=== PATIENT | male | born 1990 | race Caucasian/White ===

== ENCOUNTER 2017-01-19 15:01 | Emergency (ER) | payer MEDICARE ==
[~2017-01-19] VITALS: Ht 165.1 cm; Wt 52.2 kg
[~2017-01-19 15:01] MED LIST: AMBIEN 10MG TAB10 MG PO; AMOXICOT500 M1 PO; BUSPIRONE 5MG TA5 MG PO; KEFLEX 500MG.500 MG PO; KLONOPIN1 MG PO; NORCO 325 MG-51 TAB PO; SEPTRA DS 800 M1 TAB PO; SUBOXONE 8 MG-21 TAB SL; ULTRAM50 MG PO
[2017-01-19] MEDS ORDERED: ESTAZOLAM1 MG PO (15:17)
--- OUTSIDE RECORDS SUMMARY | 2017-01-19 15:28 | External Medical Summary Rpt | CCD ---
Author Author , ASHUTOSH Organization ASHUTOSH Address Unknown Phone [email or web address] Care [email or web address] Providers Care Pack Room Operator Name Role Phone Isabel Lamas MD, Unavailable Unavailable Isabel Lamas MD M S CAIT M S Unavailable Unavailable CAIT Purpose Continuity of Care Document - 04-16-2012 through 2016 Problems Code Diagnosis DOS Provider Status 034.0 034.0 STREP 03-01-2013 [place] SORE [facility] THROAT [facility] 079.99 079.99 03-01-2013 [facility] INFECTION [facility] NOS 681.02 681.02 04-17-2012 [place] ONYCHIA [facility] G47.00 Insomnia, unspecified 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 M54.6 Pain in thoracic spine R00.2 Palpitation s R07.81 Pleurodynia R07.9 Chest pain, unspecified R10.13 Epigastric pain R10.84 Generalized abdominal pain R91.1 Solitary pulmonary nodule Allergies, Adverse Reactions, Alerts Type Allergy to substance Adverse Reaction to Substance Substance Reaction Severity INGREDIENT: NO KNOWN Unknown Unknown - NO KNOWN DRUG ALLERGY Medications Na ND Rx Da Fi Fi Am Da Di Ph RX Ph St me C No te ll ll ou ys ag ar # ys at rm s nt no ma ic us Or Da si cy ia de te s n re d Ib 62 01 0 No up 58 -0 ro 40 4- Lo fe 74 20 ng n 60 14 er 40 1 0M Ac G ti Ta ve bl et BI 60 01 0 No CI 79 -0 LL 30 4- Lo IN 70 20 ng 11 14 er L- 0 A Ac 1, ti 20 ve 0, 00 0 UN IT S RIVAS 51 02 0 No LF 07 -2 AM 90 0- Lo ET 12 20 ng HO 82 13 er XA 0 ZO Ac LE ti -T ve MP DS TA BL ET Ce 55 02 0 No ph 95 -2 al 30 0- Lo ex 11 20 ng in 40 13 er 1 50 Ac 0M ti G ve Ca ps ul e Vital Signs 03-01-2013 13:04 Name Value Interpretat Reference Comment ion Range Body 100.1 Temperature [degF] BP 62 mm[Hg] Diastolic BP Systolic 103 mm[Hg] Heart 117 /min Rate/Pulse O2% 100 % Respiratory 18 /min Rate 03-01-2013 12:18 Name Value Interpretat Reference Comment ion Range BP 77 mm[Hg] Diastolic BP Systolic 119 mm[Hg] Heart 121 /min Rate/Pulse O2% 97 % Respiratory 20 /min Rate Results Labs Lab Lab Date Result Refere Interp Status Commen Order Detail nces retati t Range on STREP SCREEN (RAPID) (03-01-2013 11:39) STREP POSITIV complet SCREEN 014 E ed (RAPID) 11:39 Encounters Encounter Start End Date Code Location Performer Type Date Emergency JOCELYNE Lamas MD (ER) 4 11:35 4 13:06 [facility] Emergency JOCELYNE Rizvi (ER) 3 23:43 3 00:31 [facility]
--- OUTSIDE RECORDS SUMMARY | 2017-01-19 15:28 | External Medical Summary Rpt | CCD ---
Author Author , ASHUTOSH Organization ASHUTOSH Address Unknown Phone [email or web address] [email or web address] Care Facility Sales And Admin Name Role Phone Isabel Lamas MD, Unavailable Unavailable Isabel Lamas MD M S CAIT M S Unavailable Unavailable CAIT Purpose Continuity of Care Document - 04-16-2012 through 2016 Problems Code Diagnosis DOS Provider Status 034.0 034.0 STREP 03-01-2013 [place] [facility] 079.99 079.99 03-01-2013 [facility] INFECTION [facility] NOS 681.02 681.02 04-17-2012 [place] ONYCHIA [facility] G47.00 Insomnia, unspecified I77.4 Celiac artery [...] Lamas MD (ER) 4 11:35 4 13:06 [facility] Emergency JOCELYNE Rizvi (ER) 3 23:43 3 00:31 [facility]
--- OUTSIDE RECORDS SUMMARY | 2017-01-19 15:29 | External Medical Summary Rpt | CCD ---
Author Author , ASHUTOSH Organization ASHUTOSH Address Unknown Phone [email or web address] Immunization Name Date Rout CVX Reac Dose Comm Prov Is Faci e tion ent ider Refu lity Give sed n Hep 08-0 8 999 Hist H149 No H149 B, 2-20 oric ped/ 05 al adol Info rmat ion - Sour ce Unsp ecif ied Hep 07-2 8 999 Hist H149 No H149 B, 3-20 oric ped/ 04 al adol Info rmat ion - Sour ce Unsp ecif ied Td 07-2 9 999 Hist H149 No H149 (rafi 3-20 oric lt), 04 al Info adso rmat rbed ion - Sour ce Unsp ecif ied DTP 04-1 1 999 Hist H180 No H180 5-19 oric 96 al Info rmat ion - Sour ce Unsp ecif ied MMR 04-1 3 999 Hist H180 No H180 5-19 oric 96 al Info rmat ion - Sour ce Unsp ecif ied Robert 04-1 2 999 Hist H180 No H180 o-OP 5-19 oric V 96 al Info rmat ion - Sour ce Unsp ecif ied
--- OUTSIDE RECORDS SUMMARY | 2017-01-19 15:29 | External Medical Summary Rpt | CCD ---
Author Author [employer] Organization [employer] Address Unknown Phone Unavailable Purpose Continuity of Care Document - through 2016
--- OUTSIDE RECORDS SUMMARY | 2017-01-19 15:29 | External Medical Summary Rpt | CCD ---
Author Author , ASHUTOSH Organization ASHUTOSH Address Unknown Phone [email or web address] Immunization Name Date Rout CVX Reac Dose [...]
--- NOTE | 2017-01-19 15:55 | Emergency Room Report ---
History of Present Illness Time Seen by MD [place] Presenting Problem in Triage Pt arrived:Walked Presenting Problem:WEAK AND SHAKY Onset of symptoms date/time:01/19/17 or onset unknown for: Treatment Prior to Arrival: ESTISOLAM [facility] Provided by:SELF Sepsis Risk Assessment: Temp: 98.9 B/P: 145/82 MAP: 103 Pulse: 96 Resp: 20 Recent fever? N Clinical Suspician of Infection? N Mental Status: 1 - Regular (Normal Baseline) Sepsis Risk:Possible Sepsis Risk Have you (or family members/close friends) recently traveled outside the [place]? N If Yes, where/when: Have you had exposure to infectious disease within the past month? N TB? Other? Specify: Patient states he feels lightheaded and weak today and was driving he denies any shortness of breath he denies any loss of consciousness denies any palpitations or racing heart he denies any pain no complaint of headache chest pain or abdominal pain he denies any myalgias he denies any fevers or chills and denies nausea vomiting diarrhea he states he drinks alcohol 3 beers a night he denies any drug use. ALLERGIES Coded Allergies: No Known Allergies (01/19/17) Home Medications Reported Medications Estazolam 1 MG PO QHS History Medical History General CAD? No Angina: No ID: No Hypertension? No Hyperlipidemia? No CHF? No DVT? No PE? No COPD? No Asthma? No Anemia? No GERD? No Gastric ulcers? No GI Bleed? No Hernia? No Thyroid Problems? No Hypothyroidism? No CVA? Yes Seizures? No Diabetes? No Renal Insuffiency? No End Stage Renal Disease? No UTI? No Stones? No BPH? No GB Disease: No Nephritic Syndrome? No Asplenia? No Hepatitis? No Sickle Cell Disease? No Arthritis? No Migraines? No Cataracts? No Glaucoma? No MRSA? No HIV? No TB? No Anxiety? Yes Depression? No Cancer? No More? Yes Additional hx: SCOLIOSIS Immunization Hx DT/Tetanus 5-10 YRS Surgical Hx Previous Surgery?Y ORAL SURGERY Social History Smoking Hx Smoker: Never Smoker Tobacco: Yes Type Chew Packs/day N/A Are you/the child exposed to second-hand smoke: No Alcohol Alcohol: No Review of Systems All Other Systems Reviewed and Negative Physical Exam Vital Signs Vital Signs Date Time Temp Pulse Resp B/P Pulse O2 O2 Flow FiO2 Ox Delivery Rate 01/19 1648 74 20 118/82 96 01/19 1627 78 115/80 01/19 1627 91 132/43 01/19 162 97 123/77 01/19 1507 98.9 96 20 145/82 96 General Appearance: Nontoxic fatigued and dehydrated Head: Normocephalic, without obvious abnormality, atraumatic. Eyes: conjunctiva/corneas clear ENT: Mucous membranes dry Neck: No jugular venous distention. Cardiac: regular rate and rhythm Lungs: Clear to auscultation bilaterally Abdomen: Nontender, Nondistended, positive bowel sounds, no rebound : No CVA tenderness Extremities: no edema Musculoskeletal: No chest wall tenderness Skin: No rashes or lesions to exposed skin. Neurologic: Alert. Alert and oriented x3 Cranial nerves intact Strength 5 out of 5 Sensation intact to light touch Psychiatric: Normal affect (Lissette PEREZ, Rafael) General Appearance normal appearance Respiratory Status No: respiratory distress. Cardiovascular normal exam Neurologic alert Medical Decision Making LABS/Meds/Orders Pt receiving controlled substance in ED? No Results/Orders Laboratory Tests 01/19/17 1625: Sodium 146 H, Potassium 3.9, Chloride 107, Carbon Dioxide 31, BUN 13, Creatinine 0.9, Estimated Creat Clear 93, Estimated GFR (MDRD) 103, Glucose 94, Calcium 9.2, Total Bilirubin 0.5, AST 19, ALT 32, Alkaline Phosphatase 81, Troponin I < 0.02, Total Protein 7.8, Albumin 4.4, Globulin 3.4 H, Albumin/ Globulin Ratio 1.3, WBC 8.0, RBC 5.47, Hgb 16.2, Hct 48.7, MCV 89.0, RDW 12.8, Plt Count 272, MPV 7.1 L, Gran % 76.2, Gran # 6.1, Lymphocytes % 15.4, Monocytes % 7.1, Eosinophils % 0.9, Basophils % 0.5, Lymphocytes # 1.2, Monocytes # 0.6, Eosinophils # 0.1, Basophils # 0.0, PUBS MCHC 33.3, MCH 29.6 01/19/17 1620: Opiates Screen NEGATIVE, Urine Methadone Screen NEGATIVE, Barbiturates NEGATIVE, Phencyclidine Screen NEGATIVE, Amphetamines Screen NEGATIVE, Benzodiazepines Screen NEGATIVE, Cocaine Screen NEGATIVE, Marijuana (THC) Screen NEGATIVE, Urine Color YELLOW, Urine Appearance CLEAR, Urine pH 6.0, Ur Specific Brumley <= 1.005 , Urine Protein NEGATIVE, Urine Ketones NEGATIVE, Urine Blood NEGATIVE, Urine Nitrate NEGATIVE, Urine Bilirubin NEGATIVE, Urine Urobilinogen 0.2, Ur Leukocyte Esterase NEGATIVE, Urine RBC NONE, Urine WBC NONE, Ur Squamous Epith Cells OCC, Urine Bacteria TRACE, Urine Glucose NEGATIVE Current Medication Orders Sig/Juan Start time Last Medication Dose Route Stop Time Status Admin Sodium Chloride 1,000 ML .STK-MED ONE 01/19 1637 DC IV Sodium Chloride 10 ML PRN PRN 01/19 1615 AC IV 01/20 1602 Sodium Chloride 1,000 ML .Q1H1M 01/19 1600 DC 01/19 IV 01/19 1700 1637 Sodium Chloride 10 ML PRN PRN 01/19 1600 AC IV 01/20 1552 Orders Procedure Date/time Status IV SALINE LOCK 01/19 1602 Active ELECTROCARDIOGRAM REQUEST 01/19 1553 Active CHEST(2 VIEWS-NOT PORTABLE) 01/19 1553 Active ORTHOSTATIC B/P 01/19 1553 Active URINALYSIS/COMPLETE 01/19 1553 Complete TROPONIN I 01/19 1553 Complete DRUG ABUSE SCREEN (10) 01/19 1553 Complete CBC WITH AUTO DIFF 01/19 1553 Complete CHEM 12 PROFILE 01/19 1553 Complete 12 LEAD EKG-[facility] (INITIAL) 01/19 1550 Active 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 Rhythm Normal Sinus Rhythm Rate 80 Ectopy No Comments Electrocardiogram read by myself some RIGHT axis and RIGHT ventricular hypertrophy early RIGHT bundle branch block EKG NSR Departure Departure Disposition DC Home or Self Care(routine) Clinical Impression Primary Impression: Light headedness Condition STABLE Referrals CHARLES SILVEIRA (Family) Patient Instructions Dizziness, Nonvertigo Additional Instructions follow up with your family doctor for recheck return if worse to ER drink plenty of fluids Prescriptions Current Visit Scripts ONDANSETRON HCL (Zofran 4MG Tab) 4 MG PO Q6HP PRN NAUSEA AND VOMITING #10 TAB ED Critical Care Critical Care No at 1725
[2017-01-19 16:34] LABS: URINE BILIRUBIN - DIPSTICK NEGATIVE (NEG); URINE BLOOD NEGATIVE (NEG)
[2017-01-19 16:35] LABS: HEMOGLOBIN 16.2 g/dL (14.1-18.0); LYMPH # 1.2 K/mm3 (0.7-4.5); LYMPH % 15.4 % (10-50)
[2017-01-19 16:46] LABS: URINE SQUAMOUS CELLS OCC #/hpf (OCC)
[2017-01-19 16:47] LABS: BUN 13 mg/dL (7-18); GFR (ESTIMATED) 103 ML/MIN (>60)
[2017-01-19 16:50] LABS: AMPHETAMINES/METAMPHETAMINES NEGATIVE ng/mL (<1000)
[2017-01-19] MEDS ORDERED: ZOFRAN4 MG PO (17:23)
[2017-01-19 17:25] VITALS: BP 118/82
--- NOTE | 2017-01-19 18:08 | RADIOLOGY REPORT PS360 ---
CHEST(2 VIEWS-NOT PORTABLE) COMPARISON: PA and lateral chest 10/13/2015 HISTORY: Dizziness TECHNIQUE: PA and lateral chest FINDINGS: The lung [place] are well expanded. There are slightly prominent bronchovascular markings in the right suprahilar region extending to the right upper lobe otherwise lung w[place] are clear of infiltrate. Cardiac size is normal. There is mild pectus excavatum of the lower sternum. IMPRESSION: Questionable right upper lobe bronchopneumonia versus confluence of vascular shadows, stable mild pectus excavatum
== END 2017-01-19 17:27 | disposition home or self-care (01) ==
LOC: ER 15:01
PROVIDERS: Emergency Medicine
DX: R42 Dizziness and giddiness (principal); F41.9 Anxiety disorder, unspecified; Z79.899 Other long term (current) drug therapy

== ENCOUNTER 2017-02-02 13:05 | Emergency (ER) | payer MEDICARE ==
[~2017-02-02] VITALS: Ht 165.1 cm; Wt 54.4 kg
[~2017-02-02 13:05] MED LIST changes: +ESTAZOLAM1 MG PO; +ZOFRAN4 MG PO
[2017-02-02 13:29] LABS: URINE BILIRUBIN - DIPSTICK NEGATIVE (NEG); URINE BLOOD NEGATIVE (NEG)
--- OUTSIDE RECORDS SUMMARY | 2017-02-02 13:46 | External Medical Summary Rpt | CCD ---
Author Author , [facility] Organization [facility] Address Unknown Phone Care Team Providers Care Hotel Staff Member Name Role Phone A Kyree ALEXIS MD PSC, A Unavailable Unavailable Kyree ALEXIS MD PSC PALLAVI ESCOBAR, Unavailable Unavailable PALLAVI ESCOBAR DOUGLAS, Unavailable Unavailable MEKA WHITTINGTON [facility] # [id number], Unavailable Unavailable [facility] # [id number] [facility][id number], Unavailable Unavailable [facility][id number] [place] [facility], Unavailable [facility]available [facility] [facility] Un[facility] Un[facility], [facility] Unavailable Unavailable HOSPITA, [facility] Unavailable Unavailable INC, [facility] Unavailable Unavailable [facility]PITAL P, [facility], Unavailable Unavailable [facility], Unavailable Unavailable [facility] PL[facility], Unavailable Unavailable [facility], [facility] Isabel Lamas MD, Unavailable Unavailable Isabel Lamas MD [facility] CRI, AR[facility]IS CRI Unavailable Unavailable [facility] Unavailable Unavailable [facility] Unavailable Unavailable [facility] Unavailable Unavailable SERVICES, [facility] CHENCHO JOSEPH, Unavailable Unavailable [facility] JO[facility] Unavailable Unavailable CARE, [facility] Unavailable Unavailable INC, [facility] MALLORY SMILEY MD Unavailable Unavailable CONSULTING SRVMALLORY MD CONSULTING SRV [facility], Unavailable [facility], Unavailable Unavailable [facility] Unavailable Unavailable [id number] # [id number], [facility] [address] # 0098 [facility] Unavailable Unavailable [id number] # [id number], [facility] [address] # 0393 PALLAVI ROCHA MD Unavailable Unavailable PSC, PALLAVI ROCHA MD PSC ROSS GABBY, ROSS GABBY Unavailable Unavailable SCIFRES ANG, SCIFRES Unavailable Unavailable [facility] Un[facility] Unavailable [facility]ICIANS, [facility], Unavailable [facility]available [facility], Unavailable Unavailable [facility] Unavailable Unavailable #591, [facility]591 [facility] # Unavailable Unavailable [id number], [facility] # [id number] [facility] Unavailable Unavailable [facility], [facility] SHERIF STILES Unavailable Unavailable GO Jenkins DEBORAH J WRIGHT, A C, VANESA, Unavailable Unavailable A C Purpose Continuity of Care Document - 06-11-2007 through 2016 Problems Code Diagnosis DOS Provider Status J040 ACUTE 10-13-2015 [facility], [facility] R0789 OTHER CHEST 10-13-2015 [facility] R079 CHEST PAIN 10-13-2015 [facility] R091 PLEURISY 10-13-2015 [facility], [facility] G4700 INSOMNIA 09-13-2015 [facility]PECIFIED [facility] Z681 BODY MASS 09-13-2015 INDEX 19.9 [facility] OR LESS PHYSICIANS ADULT [id number] OTHER LONG 09-13-2015 TERM [facility] CURRENT PHYSICIANS DRUG THERAPY [id number] PAIN IN 08-19-2015 [place] [facility] M419 SCOLIOSIS 08-19-2015 [place] [facility] M461 SACROILIITI 08-19-2015 [place] S NOT [facility] ELSEWHERE C CENTER CLASSIFIED M5416 RADICULOPAT 08-19-2015 [place] HY LUMBAR [facility] M546 PAIN IN 08-19-2015 [place] [facility]ACIC [facility] SPINE [facility] J40 BRONCHITIS 01-13-2015 [facility] NOT PHYSICIANS SPECIFIED GROUP ACUTE OR CHRONIC R05 COUGH 01-02-2015 [facility] R0989 OTH SPEC SX 01-02-2015 [facility] & SIGNS [facility] IN[facility]LV THE IMAGING ASS CIRC & RESP SYS 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 6820 CELLULITIS 09-29-2014 [facility] AND ABSCESS PHYSICIANS OF FACE GROUP 7245 UNSPECIFIED 09-29-2014 [facility] BACKACHE PHYSICIANS GROUP 15851 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 [facility] 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 7242 LUMBAGO 09-15-2014 [facility] 04328 SCOLIOSIS , 09-15-2014 [facility] 03524 NAUSEA WITH 06-17-2014 [facility] 91689 ABDOMINAL 06-17-2014 [place] [facility], MEDICAL UNSPECIFIED IMAGING ASS SITE 25615 ABDOMINAL 06-17-2014 [place] [facility] UPPER INC QUADRANT 5589 OTH&UNSPEC 06-16-2014 [facility] GASTROENTER ITIS&COLITI S 95804 ABDOMINAL 06-16-2014 [place] [facility] OTHER MEDICAL SPECIFIED IMAGING ASS SITE 034.0 034.0 STREP 03-01-2013 [place] SORE [facility] THROAT [facility] 079.99 079.99 03-01-2013 [place] VIRAL [facility] INFECTION Hospital NOS 59737 UNSPECIFIED 03-01-2013 [facility] VIRAL [facility] INFECTION SERVICES IN CCE & UNS SITE 55775 FEVER 03-01-2013 [facility] UNSPECIFIED [facility]ERGENCY SERVICES 3671 MYOPIA 02-08-2013 [facility] ANG 7291 UNSPECIFIED 09-06-2012 [facility] MYALGIA [facility] AND SERVICES MYOSITIS 8472 LUMBAR 09-06-2012 [place] SPRAIN AND EMERGENCY STRAIN SERVICES 681.02 681.02 04-17-2012 [place] ONYCHIA [facility] 36649 ONYCHIA AND 04-16-2012 [place] PARONYCHIA EMERGENCY OF RACINE SERVICES 7282 MUSCULAR 04-12-2012 [place] WASTING AND [facility]OP[facility]I DISUSE C CENTE ATROPHY NEC 8460 SPRAIN AND 04-12-2012 [place] STRAIN OF CHIROPRACTI LUMBOSACRAL C CENTE 41798 OTHER ACUTE 12-14-2011 [facility] PA[facility] 48106 OTHER 12-14-2011 [facility] CHRONIC [facility] 7234 BRACHIAL 08-18-2011 [place] [facility] RADICULITIS NOS 18730 SPASM OF 08-18-2011 [place] MUSCLE [facility] 8471 THORACIC 08-18-2011 [place] SPRAIN AND CHIROPRACTI STRAIN [facility] 82962 ESOPHAGEAL 07-06-2011 HEALTH REFLUX PSC 7061 OTHER ACNE 07-06-2011 HEALTH PSC 07817 GENERALIZED 02-13-2011 [facility] ANXIETY MH MR BD DISORDER INC 82385 MIGRAINE 01-19-2011 THREE UNSP W/O [facility] MED INTRACT W/O CTR STATUS MIGRAINOSUS 7802 SYNCOPE AND 12-28-2010 [facility], COLLAPSE INC. 55049 OTHER 12-28-2010 ROS[facility] GABBY CONVULSIONS 96482 OTHER 12-28-2010 [facility], DYSPNEA AND INC. RESPIRATORY ABNORMALITI ES 8470 NECK SPRAIN 10-31-2010 [facility] AND STRAIN NAL OPAL/THREE RIVE 45862 INJURY OF 10-31-2010 [facility] FACE AND INC NECK OTHER AND UNSPECIFIED 65435 OTHER 10-31-2010 [facility] INJURY OF INC OTHER SITES OF TRUNK V5869 LONG-TERM 09-06-2010 MALLORY SMILEY (CURRENT) USE OF CONSULTING OTHER SRV MEDICATIONS 65070 ACUTE 03-31-2010 A Kyree ALEXIS GASTRITIS [facility] WITHOUT MENTION OF HEMORRHAGE 86723 INSOMNIA 03-31-2010 A Kyree ALEXIS UNSPECIFIED [facility] 41500 ABDOMINAL 01-26-2010 [place] [facility], SERV EPIGASTRIC [facility]OUND[facility] 37825 NAUSEA 12-16-2009 A Kyree RODRIGUEZ MD PSC 5641 IRRITABLE 11-11-2009 A Kyree ALEXIS BOWEL [facility] SYNDROME 18141 SHORTNESS 11-01-2009 [place] [facility]ATH [facility] 7821 RASH AND 05-11-2009 A Kyree ESPINOZA MD [facility] NONSPECIFIC SKIN ERUPTION 7862 COUGH 05-11-2009 A Kyree ALEXIS MD [facility] 4659 ACUTE URIS 04-26-2009 A Kyree ARMSTRONG [facility] UNSPECIFIED SITE V154 PERS HX 02-26-2009 DEPT FOR PSYCHOLOGIC PUBLIC HLTH AL TRAUMA PRS [facility] 48012 DYSHIDROSIS 11-17-2008 A Kyree ALEXIS MD [facility] 9895 TOXIC 09-24-2008 A Kyree MCKENZIE OF [facility] VENOM 78299 STIFFNESS 09-23-2008 [place] OF JOINTS [facility] NEC C CENTER MULTIPLE SITES 7241 PAIN IN 09-23-2008 [place] [facility]AC[facility] SPINE C CENTER 66430 CLOSED 06-04-2008 [place] [facility] MET[facility]AL [facility] UNSPECIFIED 58425 CLOSED 05-05-2008 [place] [facility]ICAL UNSPEC [facility]AGING [facility] AMANDA HAND 01158 PAIN IN 04-27-2008 [place] [facility]INT[facility] 5201 SUPERNUMERA 03-30-2008 PLASENCIA&MOR RY TEETH ROW,[facility] 31288 LOSS OF 09-04-2007 [facility] 47025 FAILURE TO 09-04-2007 S [facility] TH[facility] 462 ACUTE 07-12-2007 A Kyree ALEXIS PHARYNGITIS [facility] 85578 ABDOMINAL 06-11-2007 [place] ALEXIS PAINMD PSC GENERALIZED G47.00 Insomnia, unspecified 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 J02.9 ACUTE PHARYNGITIS , UNSPECIFIED J04.0 ACUTE LARYNGITIS K52.9 NONINFECTIV E GASTROENTER ITIS AND COLITIS, UNSPECIFIED M54.6 Pain in thoracic spine R00.2 Palpitation s R07.81 Pleurodynia R07.9 Chest pain, unspecified R09.1 PLEURISY R10.13 Epigastric pain R10.84 Generalized abdominal pain R10.9 UNSPECIFIED ABDOMINAL PAIN R42 DIZZINESS AND GIDDINESS R91.1 Solitary pulmonary nodule Allergies, Adverse Reactions, [...] ti G ve Ca ps ul e SD 00 10 10 3 30 30 CV 58 WO Ac AZ 37 -3 -3 .0 S 99 NG ti OS 81 1- 1- 00 PH 69 ve IN 10 20 20 AR BR 1 10 11 11 MA EN 1 CY DA MG # L CA 05 PS 43 UL 7 E DI 00 09 09 3 30 30 CV 58 WO Ac VA 09 -1 -2 .0 S 54 NG ti LP 37 9- 2- 00 PH 51 ve RO 44 20 20 AR BR EX 10 11 11 MA EN 1 CY DA SO # L D DR 05 43 50 7 0 MG TA B GA 53 09 09 3 90 30 [place] 71 BR Ac BA 74 -1 -2 .0 L- 35 AU ti PE 60 9- 0- 00 MA 70 N ve NT 10 20 20 RT 5 MA IN 20 11 11 RY 1 PH 30 AR LO 0 MA U MG CY # CA PS 10 UL 05 E 91 CL 00 08 09 2 60 30 WA 44 GR Ac ON 37 -2 -2 .0 L- 95 OS ti AZ 81 2- 0- 00 MA 74 S ve EP 91 20 20 RT 8 LA AM 20 11 11 RR 1 1 PH Y AR MG MA CY TA # BL ET 10 05 91 CY 00 09 09 15 5 RI 67 NE Ac CL 37 -0 -0 .0 TE 19 WS ti OB 80 5- 6- 00 00 OM ve EN 75 20 20 AI E ZA 11 11 11 D JR SD 0 PH IN AR DA E MA MO 10 CY N MG 00 98 TA 2 BL # ET 00 98 ZO 00 08 08 30 30 RI 67 RI Ac LP 05 -2 -3 .0 TE 08 SH ti ID 40 9- 0- 00 44 ER ve EM 08 20 20 AI 72 11 11 D RI TA 5 PH CH RT AR AR RA MA D TE CY 10 00 98 MG 2 # TA 00 BL 98 ET CL 00 08 08 2 60 30 WA 44 GR Ac ON 37 -2 -2 .0 L- 95 OS ti AZ 81 2- 2- 00 MA 74 S ve EP 91 20 20 RT 8 LA AM 20 11 11 RR 1 1 PH Y AR MG MA CY TA # BL ET 10 05 91 ZO 16 07 07 0 30 30 WA 44 MO Ac LP 71 -2 -2 .0 L- 95 SE ti ID 40 7- 7- 00 MA 22 S ve EM 62 [address] 20 11 11 EP TA 1 PH HE RT AR N RA MA A TE CY # 10 10 MG 05 91 TA BL ET BU 00 07 07 1 45 15 WA 71 GH Ac SP 09 -1 -1 .0 L- 27 AN ti IR 30 8- 9- 00 MA 59 TA ve ON 05 20 20 RT 0 E 40 11 11 RA HC 1 PH ME L AR SH 10 MA CY MG # TA 10 BL 05 ET 91 ZY 00 07 07 0 30 30 WA 71 GH Ac SD 00 -1 -1 .0 L- 27 AN ti EX 24 8- 9- 00 MA 59 TA ve A 11 20 20 RT 1 5 53 11 11 RA MG 0 PH ME AR SH TA MA BL CY ET # 10 05 91 VY 59 06 07 14 14 RI 66 WR Ac VA 41 -2 -0 .0 TE 27 IG ti NS 70 9- 1- 00 00 HT ve E 10 20 20 AI 70 71 11 11 D AR 0 PH DY MG AR C MA CA CY PS UL 00 E 98 2 # 00 98 ZO 00 06 06 30 30 RI 66 RI Ac LP 05 -2 -2 .0 TE 16 SH ti ID 40 3- 3- 00 35 ER ve EM 08 20 20 AI 72 11 11 D RI TA 5 PH CH RT AR AR RA MA D TE CY 10 00 98 MG 2 # TA 00 BL 98 ET ZO 16 03 05 2 30 30 WA 44 MO Ac LP 71 -2 -2 .0 L- 92 SE ti ID 40 5- 4- 00 MA 63 S ve EM 62 [address] 20 11 11 EP TA 1 PH HE RT AR N RA MA A TE CY # 10 10 MG 05 91 TA BL ET VY 59 05 05 0 30 30 WA 22 RI Ac VA 41 -1 -1 .0 L- 19 SH ti NS 70 8- 8- 00 MA 93 ER ve E 10 20 20 RT 0 70 71 11 11 RI 0 PH CH MG AR AR MA D CA CY PS # UL E 10 05 91 RI 68 05 05 1 30 30 WA 71 FREDIS Ac SP 38 -0 -0 .0 L- 18 WILSON ti ER 20 7- 7- 00 MA 29 NA ve ID 11 20 20 RT 1 N ON 41 11 11 PE E 4 PH RR 1 AR Y MG MA K CY TA # BL ET 10 05 91 00 05 05 1 30 30 WA 71 FREDIS Ac 37 -0 -0 .0 L- 18 WILSON ti 83 7- 7- 00 MA 29 NA ve 47 20 20 RT 2 N 20 11 11 PE 1 PH RR AR Y MA K CY # 10 05 91 ZO 16 03 04 2 30 30 WA 44 MO Ac LP 71 -2 -2 .0 L- 92 SE ti ID 40 5- 5- 00 MA 63 S ve EM 62 [address] 20 11 11 EP TA 1 PH HE RT AR N RA MA A TE CY # 10 10 MG 05 91 TA BL ET SD 37 03 04 3 60 30 WA 88 RI Ac IL 00 -1 -2 .0 L- 17 SH ti OS 00 1- 0- 00 MA 60 ER ve EC 45 20 20 RT 9 50 11 11 RI OT 4 PH CH C AR AR 20 MA D .6 CY # MG 10 TA 05 BL 91 ET RI 68 04 04 1 15 30 WA 71 FREDIS Ac SP 38 -1 -1 .0 L- 15 WILSON ti ER 20 2- 2- 00 MA 02 NA ve ID 11 20 20 RT 8 N ON 41 11 11 PE E 4 PH RR 1 AR Y MG MA K CY TA # BL ET 10 05 91 EF 00 03 03 1 30 30 WA 71 FREDIS Ac FE 00 -3 -3 .0 L- 13 WILSON ti XO 80 1- 1- 00 MA 52 NA ve R 83 20 20 RT 2 N XR 32 11 11 PE 1 PH RR 75 AR Y MA K MG CY # CA PS 10 UL 05 E 91 ZO 16 03 03 2 30 30 WA 44 MO Ac LP 71 -2 -2 .0 L- 92 SE ti ID 40 5- 7- 00 MA 63 S ve EM 62 [address] 20 11 11 EP TA 1 PH HE RT AR N RA MA A TE CY # 10 10 MG 05 91 TA BL ET VY 59 03 03 0 30 30 WA 22 RI Ac VA 41 -1 -1 .0 L- 19 SH ti NS 70 9- 9- 00 MA 61 ER ve E 10 20 20 RT 6 70 71 11 11 RI 0 PH CH MG AR AR MA D CA CY PS # UL E 10 05 91 SD 37 03 03 3 60 30 WA 88 RI Ac IL 00 -1 -1 .0 L- 17 SH ti OS 00 1- 1- 00 MA 60 ER ve EC 45 20 20 RT 9 50 11 11 RI OT 4 PH CH C AR AR 20 MA D .6 CY # MG 10 TA 05 BL 91 ET ZO 16 01 02 1 30 30 WA 44 RI Ac LP 71 -3 -2 .0 L- 91 SH ti ID 40 1- 7- 00 MA 40 ER ve EM 62 20 20 RT 2 20 11 11 RI TA 1 PH CH RT AR AR RA MA D TE CY # 10 10 MG 05 91 TA BL ET SD 37 12 02 2 30 30 WA 88 FREDIS Ac IL 00 -0 -1 .0 L- 17 SC ti OS 00 1- 8- 00 MA 04 H ve EC 45 20 20 RT 5 AN 50 10 11 TO OT 4 PH NI C AR O 20 MA .6 CY # MG 10 TA 05 BL 91 ET VY 59 02 02 0 30 30 WA 22 RI Ac VA 41 -1 -1 .0 L- 19 SH ti NS 70 8- 8- 00 MA 47 ER ve E 10 20 20 RT 4 70 71 11 11 RI 0 PH CH MG AR AR MA D CA CY PS # UL E 10 05 91 ZO 16 01 01 1 30 30 WA 44 RI Ac LP 71 -3 -3 .0 L- 91 SH ti ID 40 1- 1- 00 MA 40 ER ve EM 62 20 20 RT 2 20 11 11 RI TA 1 PH CH RT AR AR RA MA D TE CY # 10 10 MG 05 91 TA BL ET SD 37 12 01 2 30 30 WA 88 FREDIS Ac IL 00 -0 -2 .0 L- 17 SC ti OS 00 1- 1- 00 MA 04 H ve EC 45 20 20 RT 5 AN 50 10 11 TO OT 4 PH NI C AR O 20 MA .6 CY # MG 10 TA 05 BL 91 ET VY 59 01 01 0 30 30 WA 22 RI Ac VA 41 -1 -1 .0 L- 19 SH ti NS 70 7- 7- 00 MA 29 ER ve E 10 20 20 RT 7 70 71 11 11 RI 0 PH CH MG AR AR MA D CA CY PS # UL E 10 05 91 ZO 16 12 01 1 30 30 WA 44 RI Ac LP 71 -0 -0 .0 L- 90 SH ti ID 40 6- 3- 00 MA 30 ER ve EM 62 20 20 RT 2 20 10 11 RI TA 1 PH CH RT AR AR RA MA D TE CY # 10 10 MG 05 91 TA BL ET VY 59 12 12 0 30 30 WA 22 RI Ac VA 41 -0 -1 .0 L- 19 SH ti NS 70 7- 5- 00 MA 13 ER ve E 10 20 20 RT 2 70 71 10 10 RI 0 PH CH MG AR AR MA D CA CY PS # UL E 10 05 91 54 10 12 2 30 30 WA 70 MO Ac 45 -0 -0 .0 L- 89 SE ti 80 8- 6- 00 MA 49 S ve 94 [address] 51 10 10 EP 0 PH HE AR N MA A CY # 10 05 91 ZO 16 12 12 1 30 30 WA 44 RI Ac LP 71 -0 -0 .0 L- 90 SH ti ID 40 6- 6- 00 MA 30 ER ve EM 62 20 20 RT 2 20 10 10 RI TA 1 PH CH RT AR AR RA MA D TE CY # 10 10 MG 05 91 TA BL ET SD 37 12 12 2 30 30 WA 88 FREDIS Ac IL 00 -0 -0 .0 L- 17 SC ti OS 00 1- 1- 00 MA 04 H ve EC 45 20 20 RT 5 AN 50 10 10 TO OT 4 PH NI C AR O 20 MA .6 CY # MG 10 TA 05 BL 91 ET ZO 16 11 11 0 30 15 WA 44 RI Ac LP 71 -2 -2 .0 L- 90 SH ti ID 40 3- 3- 00 MA 02 ER ve EM 62 20 20 RT 3 10 10 10 RI TA 1 PH CH RT AR AR RA MA D TE CY 5 # MG 10 05 TA 91 BL ET VY 59 11 11 0 30 30 WA 22 RI Ac VA 41 -1 -1 .0 L- 18 SH ti NS 70 2- 2- 00 MA 96 ER ve E 10 20 20 RT 4 70 71 10 10 RI 0 PH CH MG AR AR MA D CA CY PS # UL E 10 05 91 SE 00 10 10 1 28 14 WA 70 RI Ac RO 31 -2 -2 .0 L- 91 SH ti QU 00 1- 1- 00 MA 22 ER ve EL 28 20 20 RT 9 06 10 10 RI XR 0 PH CH AR AR 50 MA D CY MG # TA 10 BL 05 ET 91 VY 59 10 10 0 30 30 WA 22 MO Ac VA 41 -0 -1 .0 L- 18 SE ti NS 70 8- 2- 00 MA 78 S ve E 10 [address] 70 71 10 10 EP 0 PH HE MG AR N MA A CA CY PS # UL E 10 05 91 54 10 10 2 30 30 WA 70 MO Ac 45 -0 -1 .0 L- 89 SE ti 80 8- 2- 00 MA 49 S ve 94 [address] 51 10 10 EP 0 PH HE AR N MA A CY # 10 05 91 SE 00 10 10 0 15 15 WA 70 MO Ac RO 31 -0 -0 .0 L- 89 SE ti QU 00 8- 8- 00 MA 49 S ve EL 28 [address] 06 10 10 EP XR 0 PH HE AR N 50 MA A CY MG # TA 10 BL 05 ET 91 DI 00 09 09 1 12 30 WA 70 RI Ac CY 52 -1 -1 0. L- 86 SH ti CL 70 6- 6- 00 MA 50 ER ve OM 58 20 20 0 RT 5 IN 60 10 10 RI E 1 PH CH 10 AR AR MA D MG CY # CA PS 10 UL 05 E 91 00 09 09 1 30 30 WA 70 RI Ac 37 -1 -1 .0 L- 86 SH ti 83 6- 6- 00 MA 50 ER ve 47 20 20 RT 6 20 10 10 RI 1 PH CH AR AR MA D CY # 10 05 91 VY 59 09 09 0 30 30 WA 22 WR Ac VA 41 -1 -1 .0 L- 18 IG ti NS 70 4- 5- 00 MA 63 HT ve E 10 20 20 RT 0 70 71 10 10 AR 0 PH DY MG AR C MA CA CY PS # UL E 10 05 91 DI 00 07 09 2 60 30 WA 70 RI Ac CY 52 -0 -1 .0 L- 77 SH ti CL 70 6- 3- 00 MA 53 ER ve OM 58 20 20 RT 4 IN 60 10 10 RI E 1 PH CH 10 AR AR MA D MG CY # CA PS 10 UL 05 E 91 00 08 09 2 30 30 WA 70 RI Ac 37 -1 -1 .0 L- 81 SH ti 82 2- 3- 00 MA 90 ER ve 68 20 20 RT 7 59 10 10 RI 3 PH CH AR AR MA D CY # 10 05 91 54 09 09 2 30 30 WA 70 WR Ac 45 -0 -1 .0 L- 84 IG ti 80 3- 3- 00 MA 83 HT ve 94 20 20 RT 2 51 10 10 AR 0 PH DY AR C MA CY # 10 05 91 00 08 08 2 30 30 WA 70 RI Ac 37 -1 -1 .0 L- 81 SH ti 82 2- 2- 00 MA 90 ER ve 68 20 20 RT 7 59 10 10 RI 3 PH CH AR AR MA D CY # 10 05 91 VY 59 08 08 0 30 30 WA 22 RI Ac VA 41 -0 -0 .0 L- 18 SH ti NS 70 6- 7- 00 MA 42 ER ve E 10 20 20 RT 2 70 71 10 10 RI 0 PH CH MG AR AR MA D CA CY PS # UL E 10 05 91 DI 00 07 08 2 60 30 WA 70 RI Ac CY 52 -0 -0 .0 L- 77 SH ti CL 70 6- 6- 00 MA 53 ER ve OM 58 20 20 RT 4 IN 60 10 10 RI E 1 PH CH 10 AR AR MA D MG CY # CA PS 10 UL 05 E 91 54 07 07 0 30 30 WA 70 WR Ac 45 -2 -2 .0 L- 79 IG ti 80 6- 7- 00 MA 80 HT ve 94 20 20 RT 8 51 10 10 AR 0 PH DY AR C MA CY # 10 05 91 VY 59 06 07 0 30 30 WA 22 RI Ac VA 41 -0 -0 .0 L- 18 SH ti NS 70 7- 7- 00 MA 08 ER ve E 10 20 20 RT 7 70 71 10 10 RI 0 PH CH MG AR AR MA D CA CY PS # UL E 10 05 91 DI 00 07 07 2 60 30 WA 70 RI Ac CY 52 -0 -0 .0 L- 77 SH ti CL 70 6- 6- 00 MA 53 ER ve OM 58 20 20 RT 4 IN 60 10 10 RI E 1 PH CH 10 AR AR MA D MG CY # CA PS 10 UL 05 E 91 SE 31 12 07 1 15 30 WA 70 RI Ac RT 72 -2 -0 .0 L- 51 SH ti RA 20 4- 5- 00 MA 65 ER ve LI 21 20 20 RT 9 NE 43 09 10 RI 0 PH CH HC AR AR L MA D 10 CY 0 # MG 10 TA 05 BL 91 ET 00 06 07 1 30 30 WA 70 RI Ac 37 -0 -0 .0 L- 77 SH ti 82 7- 5- 00 MA 33 ER ve 68 20 20 RT 3 59 10 10 RI 3 PH CH AR AR MA D CY # 10 05 91 VY 59 06 06 30 30 RI 83 RI Ac VA 41 -0 -0 .0 TE 73 SH ti NS 70 7- 9- 00 02 ER ve E 10 20 20 AI 70 71 10 10 D RI 0 PH CH MG AR AR MA D CA CY PS UL 03 E 93 8 # 03 93 00 06 06 1 30 30 WA 70 RI Ac 37 -0 -0 .0 L- 73 SH ti 82 7- 7- 00 MA 71 ER ve 68 20 20 RT 9 59 10 10 RI 3 PH CH AR AR MA D CY # 10 05 91 AM 51 05 05 0 30 30 WA 70 RI Ac IT 07 -2 -2 .0 L- 72 SH ti RI 90 7- 7- 00 MA 30 ER ve PT 13 20 20 RT 4 YL 36 10 10 RI IN 3 PH CH E AR AR HC MA D L CY 50 # MG 10 05 TA 91 B 54 05 05 0 30 30 WA 70 RI Ac 45 -2 -2 .0 L- 72 SH ti 80 7- 7- 00 MA 30 ER ve 94 20 20 RT 3 51 10 10 RI 0 PH CH AR AR MA D CY # 10 05 91 VY 59 04 05 0 30 30 WA 22 No Ac VA 41 -0 -1 .0 L- 17 t ti NS 70 8- 0- 00 MA 74 Av ve E 10 20 20 RT 2 ai 70 71 10 10 la 0 PH bl MG AR e MA CA CY PS # UL E 10 05 91 SE 31 04 04 1 15 30 WA 70 No Ac RT 72 -0 -2 .0 L- 65 t ti RA 20 8- 8- 00 MA 87 Av ve LI 21 20 20 RT 1 ai NE 43 10 10 la 0 PH bl HC AR e L MA 10 CY 0 # MG 10 TA 05 BL 91 ET GE 00 04 04 1 60 30 WA 70 No Ac OD 04 -0 -1 .0 L- 65 t ti ON 93 8- 3- 00 MA 87 Av ve 96 20 20 RT 2 ai 20 06 10 10 la 0 PH bl MG AR e MA CA CY PS # UL E 10 05 91 VY 59 04 04 0 30 30 WA 22 PR Ac VA 41 -0 -0 .0 L- 17 LL ti NS 70 6- 6- 00 MA 73 ER ve E 10 20 20 RT 0 70 71 10 10 CA 0 PH RO MG AR L MA J CA CY PS # UL E 10 05 91 DI 00 11 04 3 60 30 WA 70 RI Ac CY 52 -1 -0 .0 L- 46 SH ti CL 70 7- 3- 00 MA 13 ER ve OM 58 20 20 RT 8 IN 60 09 10 RI E 1 PH CH 10 AR AR MA D MG CY # CA PS 10 UL 05 E 91 SE 31 03 04 0 15 30 WA 70 No Ac RT 72 -0 -0 .0 L- 61 t ti RA 20 4- 3- 00 MA 04 Av ve LI 21 20 20 RT 7 ai NE 43 10 10 la 0 PH bl HC AR e L MA 10 CY 0 # MG 10 TA 05 BL 91 ET 60 03 03 0 12 3 WA 70 RI Ac 25 -1 -1 0. L- 62 SH ti 80 6- 6- 00 MA 72 ER ve 23 20 20 0 RT 1 91 10 10 RI 6 PH CH AR AR MA D CY # 10 05 91 PE 45 03 03 0 60 8 WA 70 RI Ac RM 80 -1 -1 .0 L- 62 SH ti ET 20 6- 6- 00 MA 72 ER ve HR 26 20 20 RT 2 IN 93 10 10 RI 7 PH CH 5% AR AR MA D CR CY EA # M 10 05 91 VY 59 03 03 0 30 30 [place] 22 No Ac VA 41 -0 -0 .0 L- 17 t ti NS 70 4- 4- 00 MA 56 Av ve E 10 20 20 RT 7 ai 70 71 10 10 la 0 PH bl MG AR e MA CA CY PS # UL E 10 05 91 RI 68 03 03 1 30 30 WA 70 No Ac SP 38 -0 -0 .0 L- 60 t ti ER 20 4- 4- 00 MA 99 Av ve ID 11 20 20 RT 8 ai ON 31 10 10 la E 4 PH bl 0. AR e 5 MA MG CY # TA BL 10 ET 05 91 SE 31 03 03 1 15 30 [place] 70 No Ac RT 72 -0 -0 .0 L- 60 t ti RA 20 4- 4- 00 MA 99 Av ve LI 21 20 20 RT 9 ai NE 33 10 10 la 0 PH bl HC AR e L MA 50 CY # MG 10 TA 05 BL 91 ET 68 03 03 0 60 30 WA 70 MO Ac 04 -0 -0 .0 L- 60 SE ti 70 1- 1- 00 MA 38 S ve 12 [address] 20 10 10 EP 1 PH HE AR N MA A CY # 10 05 91 SE 31 12 02 01 15 30 [place] 70 RI Ac RT 72 -2 -1 .0 L- 51 SH ti RA 20 4- 1- 00 MA 65 ER ve LI 21 20 20 RT 9 NE 43 09 10 RI 0 PH CH HC AR AR L MA D 10 CY 0 MG #5 91 TA BL ET DI 00 11 01 01 60 30 [place] 70 RI Ac CY 52 -1 -2 .0 L- 46 SH ti CL 70 7- 8- 00 MA 13 ER ve OM 58 20 20 RT 8 IN 60 09 10 RI E 1 PH CH 10 AR AR MA D MG CY CA #5 PS 91 UL E VY 59 12 01 00 30 30 [place] 22 RI Ac VA 41 -2 -1 .0 L- 17 SH ti NS 70 4- 4- 00 MA 22 ER ve E 10 20 20 RT 7 70 71 09 10 RI 0 PH CH MG AR AR MA D CA CY PS UL #5 E 91 SE 31 12 12 00 15 30 WA 70 RI Ac RT 72 -2 -3 .0 L- 51 SH ti RA 20 4- 1- 00 MA 65 ER ve LI 21 20 20 RT 9 NE 43 09 09 RI 0 PH CH HC AR AR L MA D 10 CY 0 MG #5 91 TA BL ET VY 59 10 12 00 30 30 WA 22 No Ac VA 41 -1 -1 .0 L- 16 t ti NS 70 9- 7- 00 MA 88 Av ve E 10 20 20 RT 5 ai 70 71 09 09 la 0 PH bl MG AR e MA CA CY PS UL #5 E 91 SE 31 10 12 01 15 30 WA 70 No Ac RT 72 -1 -0 .0 L- 42 t ti RA 20 9- 3- 00 MA 18 Av ve LI 21 20 20 RT 8 ai NE 43 09 09 la 0 PH bl HC AR e L MA 10 CY 0 MG #5 91 TA BL ET DI 00 11 12 00 60 30 WA 70 RI Ac CY 52 -1 -0 .0 L- 46 SH ti CL 70 7- 3- 00 MA 13 ER ve OM 58 20 20 RT 8 IN 60 09 09 RI E 1 PH CH 10 AR AR MA D MG CY CA #5 PS 91 UL E VY 59 10 12 00 30 30 WA 22 No Ac VA 41 -1 -0 .0 L- 16 t ti NS 70 9- 3- 00 MA 88 Av ve E 10 20 20 RT 5 ai 70 71 09 09 la 0 PH bl MG AR e MA CA CY PS UL #5 E 91 PR 00 09 12 01 60 30 WA 70 RI Ac NO 59 -2 -0 .0 L- 37 SH ti CY 15 2- 3- 00 MA 90 ER ve CL 69 20 20 RT 1 IN 55 09 09 RI E 0 PH CH 10 AR AR 0 MA D MG CY CA #5 PS 91 UL E VY 59 10 11 00 30 30 WA 22 No Ac VA 41 -1 -0 .0 L- 16 t ti NS 70 9- 5- 00 MA 88 Av ve E 10 20 20 RT 4 ai 70 71 09 09 la 0 PH bl MG AR e MA CA CY PS UL #5 E 91 SE 31 10 11 00 15 30 WA 70 No Ac RT 72 -1 -0 .0 L- 42 t ti RA 20 9- 5- 00 MA 18 Av ve LI 21 20 20 RT 8 ai NE 43 09 09 la 0 PH bl HC AR e L MA 10 CY 0 MG #5 91 TA BL ET DE 51 09 10 00 30 7 WA 70 RI Ac SO 67 -2 -0 .0 L- 37 SH ti XI 21 2- 8- 00 MA 90 ER ve ME 27 20 20 RT 0 TA 10 09 09 RI SO 1 PH CH NE AR AR MA D 0. CY 05 % #5 CR 91 EA M 45 09 10 00 22 30 WA 70 RI Ac 80 -2 -0 7. L- 37 SH ti 20 2- 8- 00 MA 90 ER ve 91 20 20 0 RT 2 83 09 09 RI 4 PH CH AR AR MA D CY #5 91 DI 00 05 10 02 60 30 WA 70 RI Ac CY 52 -2 -0 .0 L- 21 SH ti CL 70 2- 8- 00 MA 64 ER ve OM 58 20 20 RT 6 IN 60 09 09 RI E 1 PH CH 10 AR AR MA D MG CY CA #5 PS 91 UL E PR 00 09 10 00 60 30 WA 70 RI Ac NO 59 -2 -0 .0 L- 37 SH ti CY 15 2- 8- 00 MA 90 ER ve CL 69 20 20 RT 1 IN 55 09 09 RI E 0 PH CH 10 AR AR 0 MA D MG CY CA #5 PS 91 UL E VY 59 08 10 00 30 30 WA 22 No Ac VA 41 -1 -0 .0 L- 16 t ti NS 70 7- 8- 00 MA 60 Av ve E 10 20 20 RT 2 ai 70 71 09 09 la 0 PH bl MG AR e MA CA CY PS UL #5 E 91 VY 59 08 09 00 30 30 WA 22 No Ac VA 41 -1 -1 .0 L- 16 t ti NS 70 7- 0- 00 MA 60 Av ve E 10 20 20 RT 3 ai 70 71 09 09 la 0 PH bl MG AR e MA CA CY PS UL #5 E 91 HY 68 07 08 00 20 5 WA [address] 46 -3 -1 .0 L- 30 SH ti OX 20 0- 3- 00 MA 45 ER ve YZ 36 20 20 RT 6 IN 10 09 09 RI E 1 PH CH HC AR AR L MA D 25 CY MG #5 91 TA BL ET VY 59 06 08 00 30 30 WA 22 No Ac VA 41 -1 -1 .0 L- 16 t ti NS 70 4- 3- 00 MA 32 Av ve E 10 20 20 RT 0 ai 70 71 09 09 la 0 PH bl MG AR e MA CA CY PS UL #5 E 91 00 05 08 01 60 30 WA 70 RI Ac 14 -2 -1 .0 L- 21 SH ti 33 2- 3- 00 MA 64 ER ve 12 20 20 RT 6 60 09 09 RI 1 PH CH AR AR MA D CY #5 91 VY 59 06 07 00 30 30 WA 22 No Ac VA 41 -1 -0 .0 L- 16 t ti NS 70 4- 2- 00 MA 31 Av ve E 10 20 20 RT 8 ai 70 71 09 09 la 0 PH bl MG AR e MA CA CY PS UL #5 E 91 AB 59 06 07 00 30 30 WA 70 No Ac IL 14 -1 -0 .0 L- 26 t ti IF 80 4- 2- 00 MA 31 Av ve Y 00 20 20 RT 5 ai 10 81 09 09 la 3 PH bl MG AR e MA TA CY BL ET #5 91 00 05 06 00 60 30 WA 70 RI Ac 14 -2 -0 .0 L- 21 SH ti 33 2- 4- 00 MA 64 ER ve 12 20 20 RT 6 60 09 09 RI 1 PH CH AR AR MA D CY #5 91 ZY 00 04 06 01 30 30 WA 70 No Ac SD 00 -2 -0 .0 L- 17 t ti EX 24 1- 4- 00 MA 38 Av ve A 11 20 20 RT 5 ai 5 53 09 09 la MG 0 PH bl AR e TA MA BL CY ET #5 91 VY 59 04 06 00 30 30 WA 22 No Ac VA 41 -2 -0 .0 L- 15 t ti NS 70 0- 4- 00 MA 99 Av ve E 10 20 20 RT 1 ai 70 71 09 09 la 0 PH bl MG AR e MA CA CY PS UL #5 E 91 00 01 05 03 60 30 WA 70 RI Ac 14 -0 -0 .0 L- 03 SH ti 33 9- 7- 00 MA 31 ER ve 12 20 20 RT 1 60 09 09 RI 1 PH CH AR AR MA D CY #5 91 VY 59 04 05 00 30 30 WA 22 No Ac VA 41 -2 -0 .0 L- 15 t ti NS 70 0- 7- 00 MA 99 Av ve E 10 20 20 RT 0 ai 70 71 09 09 la 0 PH bl MG AR e MA CA CY PS UL #5 E 91 ZY 00 04 05 00 30 30 WA 70 No Ac SD 00 -2 -0 .0 L- 17 t ti EX 24 1- 7- 00 MA 38 Av ve A 11 20 20 RT 5 ai 5 53 09 09 la MG 0 PH bl AR e TA MA BL CY ET #5 91 00 01 03 02 60 30 WA 70 RI Ac 14 -0 -2 .0 L- 03 SH ti 33 9- 6- 00 MA 31 ER ve 12 20 20 RT 1 60 09 09 RI 1 PH CH AR AR MA D CY #5 91 VY 59 03 03 00 30 30 CV 48 No Ac VA 41 -1 -2 .0 S 74 t ti NS 70 6- 6- 00 PH 81 Av ve E 10 20 20 AR ai 50 51 09 09 MA la 0 CY bl MG e #5 CA 43 PS 7 UL E ZY 00 03 03 00 60 30 CV 48 No Ac SD 00 -1 -2 .0 S 74 t ti EX 24 6- 6- 00 PH 80 Av ve A 11 20 20 AR ai 5 53 09 09 MA la MG 0 CY bl e TA #5 BL 43 ET 7 00 01 02 01 60 30 WA 70 RI Ac 14 -0 -2 .0 L- 03 SH ti 33 9- 6- 00 MA 31 ER ve 12 20 20 RT 1 60 09 09 RI 1 PH CH AR AR MA D CY #5 91 VY 59 02 02 00 30 30 WA 22 No Ac VA 41 -1 -2 .0 L- 15 t ti NS 70 8- 6- 00 MA 64 Av ve E 10 20 20 RT 7 ai 50 51 09 09 la 0 PH bl MG AR e MA CA CY PS UL #5 E 91 AB 59 01 02 00 30 30 CV 48 No Ac IL 14 -2 -1 .0 S 23 t ti IF 80 9- 2- 00 PH 78 Av ve Y 00 20 20 AR ai 10 81 09 09 MA la 3 CY bl MG e #5 TA 43 BL 7 ET CH 00 02 02 00 47 25 WA 70 JE Ac LO 11 -0 -1 3. L- 06 NK ti RH 62 2- 2- 00 MA 21 IN ve EX 00 20 20 0 RT 3 S ID 11 09 09 WI IN 6 PH LL E AR IA 0. MA M 12 CY S % RI #5 NS 91 E VY 59 11 01 00 30 30 WA 22 No Ac VA 41 -1 -3 .0 L- 15 t ti NS 70 7- 0- 00 MA 47 Av ve E 10 20 20 RT 5 ai 30 31 08 09 la 0 PH bl MG AR e MA CA CY PS UL #5 E 91 00 01 01 00 60 30 WA 70 RI Ac 14 -0 -1 .0 L- 03 SH ti 33 9- 5- 00 MA 31 ER ve 12 20 20 RT 1 60 09 09 RI 1 PH CH AR AR MA D CY #5 91 VY 59 11 12 00 30 30 WA 22 No Ac VA 41 -1 -1 .0 L- 15 t ti NS 70 7- 8- 00 MA 31 Av ve E 10 20 20 RT 4 ai 30 31 08 08 la 0 PH bl MG AR e MA CA CY PS UL #5 E 91 AB 59 11 12 00 30 30 WA 69 No Ac IL 14 -1 -1 .0 L- 98 t ti IF 80 7- 8- 00 MA 54 Av ve Y 00 20 20 RT 9 ai 5 71 08 08 la MG 3 PH bl AR e TA MA BL CY ET #5 91 AB 59 10 11 00 60 30 CV 47 No Ac IL 14 -2 -0 .0 S 35 t ti IF 80 9- 7- 00 PH 08 Av ve Y 00 20 20 AR ai 5 71 08 08 MA la MG 3 CY bl e TA #5 BL 43 ET 7 VY 59 10 11 00 30 30 CV 47 No Ac VA 41 -2 -0 .0 S 37 t ti NS 70 9- 7- 00 PH 23 Av ve E 10 20 20 AR ai 30 31 08 08 MA la 0 CY bl MG e #5 CA 43 PS 7 UL E DI 00 07 11 01 90 30 CV 46 No Ac CY 37 -1 -0 .0 S 95 t ti CL 81 4- 7- 00 PH 81 Av ve OM 61 20 20 AR ai IN 00 08 08 MA la E 1 CY bl 10 e #5 MG 43 7 CA PS UL E AB 59 09 10 00 30 30 CV 47 No Ac IL 14 -2 -0 .0 S 04 t ti IF 80 9- 9- 00 PH 42 Av ve Y 00 20 20 AR ai 5 71 08 08 MA la MG 3 CY bl e TA #5 BL 43 ET 7 VY 59 09 10 00 30 30 CV 47 No Ac VA 41 -2 -0 .0 S 04 t ti NS 70 9- 9- 00 PH 41 Av ve E 10 20 20 AR ai 30 31 08 08 MA la 0 CY bl MG e #5 CA 43 PS 7 UL E DI 00 07 10 00 90 30 CV 46 No Ac CY 37 -1 -0 .0 S 95 t ti CL 81 4- 9- 00 PH 81 Av ve OM 61 20 20 AR ai IN 00 08 08 MA la E 1 CY bl 10 e #5 MG 43 7 CA PS UL E 00 07 08 00 15 30 CV 46 RI Ac 09 -3 -1 .0 S 49 SH ti 37 1- 4- 00 PH 65 ER ve 17 20 20 AR 75 08 08 MA RI 6 CY CH AR #5 D 43 7 00 07 08 00 4. 7 CV 46 RI Ac 09 -3 -1 00 S 46 SH ti 37 1- 4- 0 PH 71 ER ve 17 20 20 AR 65 08 08 MA RI 6 CY CH AR #5 D 43 7 AZ 00 05 05 00 6. 5 WA 69 No Ac IT 78 -1 -2 00 L- 72 t ti HR 11 6- 2- 0 MA 33 Av ve OM 49 20 20 RT 8 ai YC 66 08 08 la IN 8 PH bl AR e 25 MA 0 CY MG #5 TA 91 BL ET 58 05 05 00 24 6 WA 69 No Ac 17 -1 -2 0. L- 72 t ti 70 6- 2- 00 MA 33 Av ve 92 20 20 0 RT 9 ai 30 08 08 la 7 PH bl AR e MA CY #5 91 58 05 05 00 60 30 WA 69 No Ac 17 -1 -2 .0 L- 72 t ti 70 6- 2- 00 MA 33 Av ve 23 20 20 RT 6 ai 70 08 08 la 4 PH bl AR e MA CY #5 91 58 03 04 00 60 10 WA 69 No Ac 17 -1 -1 .0 L- 63 t ti 70 0- 7- 00 MA 53 Av ve 27 20 20 RT 9 ai 40 08 08 la 4 PH bl AR e MA CY #5 91 Vital Signs 03-01-2013 13:04 Name Value Interpretat [...] Order Detail nces retati t Range on Urinalysis with microscopy (02-02-2017 13:20) Urine CLEAR CLEAR complet appeara 017 CLEAR L ed nce 13:20 determi nation Urine NEGATIV NEG complet total 017 E ed bilirub 13:20 NEGATIV in E L detecti on by test Urine NEGATIV NEG complet blood 017 E ed detecti 13:20 NEGATIV on E L Urine YELLOW YELLOW complet color 017 YELLOW ed 13:20 L Glucose = NEG complet ur 017 NEGATIV ed test 13:20 E strip Urine NEGATIV NEG complet ketones 017 E ed 13:20 NEGATIV detecti E L on by mg/dL automat ed nathanael Mucus NEGATIV NEG complet detecti 017 E ed on in 13:20 NEGATIV urine E L sedimen t by lig Urine NEGATIV NEG complet nitrite 017 E ed 13:20 NEGATIV detecti E L on by test strip Urine = 6.0 5.0-8.5 complet pH 017 ed 13:20 Urine = NEG complet protein 017 NEGATIV ed 13:20 E mg/dL measure ment by automat ed t Urine = 1.010 1.005-1 complet specifi 017 .030 ed c 13:20 gravity measure ment Urine 0.2 0.2 NEG complet urobili 017 L ed nogen 13:20 E.U./dL detecti on by test str CBC w auto diff (01-19-2017 16:25) Automat 2 = 0.0 0-0.2 complet ed 017 K/MM3 ed blood 16:25 basophi l count (count/ vo Baso % = 0.5 % 0.1-2.0 complet 017 ed 16:25 Automat 2 = 0.1 0.0-0.4 complet ed 017 K/mm3 ed blood 16:25 eosinop hil count Automat = 0.9 % 0.1-12. complet ed 017 0 ed blood 16:25 eosinop hils/10 0 leukocy t Blood = 6.1 1.3-8.0 complet granulo 017 K/mm3 ed cytes 16:25 automat ed count (numb Granulo = 76.2 37.0-80 complet cyte 017 % .0 ed percent 16:25 age Blood = 48.7 42.0-52 complet hematoc 017 % .0 ed rit 16:25 (volume fractio n) Blood = 16.2 14.1-18 complet hemoglo 017 g/dL .0 ed bin 16:25 measure ment (mass/v olum Absolut = 1.2 0.7-4.5 complet e 017 K/mm3 ed lymphoc 16:25 yte count Lymphoc = 15.4 10-50 complet yte 017 % ed count, 16:25 blood, automat ed Mean = 29.6 27-31.2 complet corpusc 017 pg ed ular 16:25 hemoglo bin (MCH) determ Automat = 33.3 31.8-35 complet ed 017 g/dl .4 ed erythro 16:25 cyte mean corpusc ular h Automat = 89.0 82.2-97 complet ed 017 fl .8 ed erythro 16:25 cyte mean corpusc ular v Absolut = 0.6 0.1-1.0 complet e 017 K/mm3 ed monocyt 16:25 e count Toombs % = 7.1 % 1.7-9.3 complet 017 ed 16:25 Automat = 7.1 7.4-10. complet ed 017 fl 4 ed blood 16:25 platele t mean volume adriana Blood = 272 142-424 complet platele 017 K/mm3 ed t count 16:25 Red = 5.47 4.6-6.2 complet blood 017 M/mm3 ed cell 16:25 count Automat 11-24-2 = 12.8 11.5-17 complet ed 017 % .5 ed erythro 16:25 cyte distrib ution width Blood 01-19-2 = 8.0 4.8-10. complet leukocy 017 K/MM3 8 ed nathanael 16:25 count (number /volume ) Comprehensive metabolic panel (01-19-2017 16:25) Serum 01-19-2 = 1.3 1.1-1.8 complet or 017 ed plasma 16:25 albumin /globul in mass ra Serum 01-19-2 = 4.4 3.4-5.0 complet or 017 gm/dL ed plasma 16:25 albumin measure ment (mas Serum 01-19-2 = 81 46-116 complet or 017 U/L ed plasma 16:25 alkalin e phospha tase adriana Serum 2 = 0.5 0.2-1.0 complet or 017 mg/dL ed plasma 16:25 total bilirub in measure m Serum 01-19-2 = 13 7-18 complet or 017 mg/dL ed plasma 16:25 urea nitroge n measure men Serum 01-19-2 = 9.2 8.5-10. complet or 017 mg/dL 1 ed plasma 16:25 calcium measure ment (mas Serum 2 = 107 98-107 complet or 017 mmoL/L ed plasma 16:25 chlorid e measure ment (mo Carbon 2 = 31 21.0-32 complet dioxide 017 mmoL/L .0 ed 16:25 measure ment Serum 01-19-2 = 0.9 0.70-1. complet or 017 mg/dL 30 ed plasma 16:25 creatin ine measure ment ( Estimat 2 = 93 50-200 complet ion of 017 ML/MIN ed creatin 16:25 ine renal clearan ce Estimat = 103 >60 complet ed 017 ML/MIN ed glomeru 16:25 lar filtrat ion rate (GF Comment: REFERENCE RANGE: >60 ML/MIN/1.73 SQUARE METERS Comment: If this patient is -Syrian, then multiply the Comment: result by 1.210. Serum 24-2 = 3.4 1.3-3.2 complet globuli 017 gm/dL ed n 16:25 measure ment (mass/v olume) Serum 01-19-2 = 94 74-106 complet or 017 mg/dL ed plasma 16:25 glucose measure ment (mas Serum 01-19-2 = 3.9 3.5-5.1 complet potassi 017 mmoL/L ed um 16:25 measure ment Serum 01-19-2 = 146 136-145 complet sodium 017 mmoL/L ed measure 16:25 ment Serum 01-19-2 = 19 15-37 complet or 017 U/L ed plasma 16:25 asparta te aminotr ansfera ALT = 32 12-78 complet (SGPT) 017 U/L ed ser/harlan 16:25 s Protein 2 = 7.8 6.4-8.2 complet total 017 gm/dL ed ser/harlan 16:25 s Serum or plasma troponin i.cardiac measu (01-19-2017 16:25) Serum 01-19-2 < 0.02 0.00-0. complet or 017 ng/mL 06 ed plasma 16:25 troponi n i.cardi ac measu Urinalysis with microscopy (01-19-2017 16:20) Urine CLEAR CLEAR complet appeara 017 CLEAR L ed nce 16:20 determi nation Bacteri TRACE O complet a 017 TRACE L ed detecti 16:20 on in urine sedimen t by Urine NEGATIV NEG complet total 017 E ed bilirub 16:20 NEGATIV in E L detecti on by test Urine NEGATIV NEG complet blood 017 E ed detecti 16:20 NEGATIV on E L Urine 2 YELLOW YELLOW complet color 017 YELLOW ed 16:20 L Glucose = NEG complet ur 017 NEGATIV ed test 16:20 E strip Urine 01-19-2 NEGATIV NEG complet ketones 017 E ed 16:20 NEGATIV detecti E L on by mg/dL automat ed nathanael Mucus 01-19-2 NEGATIV NEG complet detecti 017 E ed on in 16:20 NEGATIV urine E L sedimen t by lig Urine 01-19-2 NEGATIV NEG complet nitrite 017 E ed 16:20 NEGATIV detecti E L on by test strip Urine 2 = 6.0 5.0-8.5 complet pH 017 ed 16:20 Urine 11-24-2 = NEG complet protein 017 NEGATIV ed 16:20 E mg/dL measure ment by automat ed t Erythro 01-19- NONE 0 complet cytes 017 NONE L ed detecti 16:20 rbc/hpf on in urine sedimen t Urine < = 1.005-1 complet specifi 017 1.005 .030 ed c 16:20 gravity measure ment [place] OCC OCC OCC complet s 017 L ed epithel 16:20 #/hpf ial cells detecti on in u Urine 0.2 0.2 NEG complet urobili 017 L ed nogen 16:20 E.U./dL detecti on by test str Urine = NONE O complet leukocy 017 wbc/hpf ed nathanael 16:20 count (number /volume ) Urine 9-analyte drugs of abuse screening (01-19-2017 16:20) Comment: Positive urine drug screen samples are stored for 7 days. Comment: Contact the Lab if confirmation of positives is needed. Urine NEGATIV <1000 complet ampheta 017 E ed mine 16:20 NEGATIV screeni E L ng test ng/mL Urine = <200 complet barbitu 017 NEGATIV ed rates 16:20 E ng/mL measure ment by screen Serum = 200 complet or 017 NEGATIV ng/mL ed plasma 16:20 E ng/mL benzodi azepine s measure m Cocaine = <300 complet 017 NEGATIV ed measure 16:20 E ng/g ment (mass/v olume) Methado = <300 complet ne 017 NEGATIV ed measure 16:20 E ng/mL ment (mass/v olume) Opiates = <300 complet 017 NEGATIV ed measure 16:20 E ng/mL ment (mass/v olume) Phencyc = <25 complet lidine 017 NEGATIV ed measure 16:20 E ng/mL ment (mass/v olume) 11-hydr NEGATIV <50 complet oxy 017 E ed delta-9 16:20 NEGATIV E L tetrahy ng/mL drocann abinol STREP SCREEN (RAPID) (03-01-2013 11:39) STREP POSITIV complet SCREEN 014 E ed (RAPID) 11:39 Procedures Procedure DOS Code Location Performer Comment RADEX [id number] JAZZ WHITTINGTON, HAND 2 9 [facility]ICAL [facility] VIEWS IMAGING ASSOCIATE S WRIST [id number] PALLAVI PALLAVI HAND 9 AJ ROCHA MD ORTHOSIS PSC PSC EXT CONTROL COCK-UP PREFAB RADEX 48580 JAZZ JOSEPH, HAND 2 9 MEDICAL CHENCHO P VIEWS IMAGING ASSOCIATE S APPLICATI 84143 SHAWN ESCOBAR, ON CAST 9 PALLAVI PALLAVI ELBOW FINGER SHORT ARM RADEX 92691 JAZZ WHITTINGTON, HAND 9 MEDICAL [place]KA MINIMUM 3 IMAGING VIEWS ASSOCIATE S Encounters Encounter Start End Date Code Location Performer Type Date [facility] JUAN C - 6 6 [facility] JUAN C - 5 5 [facility] JUAN C - 5 5 [facility] JOCELYNE Lamas MD (ER) 4 11:35 4 13:06 [facility] [place] [id number] [address] [facility] JOCELYNE Rizvi (ER) 3 23:43 3 00:31 [facility] [place] JUAN C - 3 3 [facility] [place] [address] 2 N OUTPATIMETHODIST [facility] - 1 1 [facility] 1 [facility] JUAN C - 9 9 [facility] JUAN C [facility] 9 9 [facility] OFF[facility] 48003 SHAWN ESCOBAR OUTPATIEN 9 9 PALLAVI PALLAVI T VISIT 15 MINUTES OFFICE 48724 SHAWN ESCOBAR OUTPATIEN 9 9 PALLAVI PALLAVI T VISIT 15 MINUTES HOSPITAL JUAN C - 9 9 [facility] T OFFICE 88431 SHAWN ESCOBAR OUTPATIEN 9 9 PALLAVI PALLAVI T NEW 60 MINUTES HOSPITAL JUAN C - 9 9 [facility] EMERGENCY [address] JUAN C 9 9 [facility] T VISIT LOW/MODER SEVERITY OFFICE 70899 JULIA BOYKIN 9 9 LYDIA RODRÍGUEZ T VISIT C 25 MINUTES OFFICE [address] [place] [facility] 9 9 VANESA Flynn VISIT PSC 15 MINUTES [facility]OSP[facility] 8 8 [facility] [place] [facility] 8 8 [facility]
--- OUTSIDE RECORDS SUMMARY | 2017-02-02 13:46 | External Medical Summary Rpt | CCD ---
Author Author , [facility] Organization [facility] Address Unknown Phone Care Team Providers Care Tax Specialist Name Role Phone A Kyree ALEXIS MD PSC, A Unavailable Unavailable Kyree ALEXIS MD PSC PALLAVI ESCOBAR, Unavailable Unavailable PALLAVI ESCOBAR DOUGLAS, Unavailable Unavailable MEKA WHITTINGTON [facility] # [id number], Unavailable Unavailable [facility] # [id number] [facility][id number], Unavailable Unavailable [facility][id number] [place] Unavailable [facility], Unavailable [facility]available [facility] Unavailable Unavailable CENTER, [facility] Unavailable Unavailable HOSPITA, [facility] Unavailable Unavailable INC, [facility] Unavailable Unavailable [facility]PITAL P, [facility], Unavailable Unavailable [facility], Unavailable Unavailable [facility] LAKISHA PLASENCIA, Unavailable Unavailable [facility] Unavailable Unavailable [facility], [facility] Isabel Lamas MD, Unavailable Unavailable Isabel Lamas MD [facility] ARMAIS CRI, ARAMIS CRI Unavailable Unavailable [facility] Unavailable Unavailable [facility] Unavailable Unavailable [facility] Unavailable Unavailable SERVICES, [facility] CHENCHO JOSEPH, Unavailable Unavailable CHENCHO JOSEPH [facility] Unavailable Unavailable CARE[facility] MH MR BD Unavailable Unavailable INC, [facility] MALLORY SMILEY MD Unavailable Unavailable CONSULTING SRVMALLORY MD CONSULTING SRV [facility], Unavailable [facility]available [facility], Unavailable [facility]available [facility] Unavailable Unavailable [id number] # 0098, [facility] 83300 # 0098 [facility] Unavailable Unavailable 89748 # 0393, [facility] 91811 # 0393 PALLAVI ROCHA MD Unavailable Unavailable PSC, PALLAVI ROCHA MD PSC ROSS GABBY, ROSS GABBY Unavailable Unavailable SCIFRES ANG, SCIFRES Unavailable Unavailable ANG [facility] Unavailable Unavailable PHYSICIANS, [facility], Unavailable Unavailable [facility], Unavailable Unavailable [facility] Unavailable Unavailable #591, [facility]591 [facility] # Unavailable Unavailable [id number], [facility] # [id number] [facility]available Unavailable OP[facility]TH[facility], [facility] SHERIF STILES Unavailable Unavailable GO Jenkins DEBORAH J WRIGHT, A C, VANESA, Unavailable Unavailable A C Purpose Continuity of Care Document - 06-11-2007 through 2016 Problems Code Diagnosis DOS Provider Status J040 ACUTE 10-13-2015 [facility] LARYNGITIS [facility]ANS, [facility] R0789 OTHER CHEST 10-13-2015 [facility] R079 CHEST PAIN 10-13-2015 [facility] R091 PLEURISY 10-13-2015 [facility], [facility] G4700 INSOMNIA 09-13-2015 UNSPECIFIED [facility] Z681 BODY MASS 09-13-2015 INDEX 19.9 [facility] OR LESS PHYSICIANS ADULT [id number] OTHER LONG 09-13-2015 TERM [facility] CURRENT PHYSICIANS DRUG THERAPY G93225 PAIN IN 08-19-2015 [facility] M419 SCOLIOSIS 08-19-2015 [facility] UNSPECIFIED [facility] C [facility] M461 SACROILIITI 08-19-2015 [facility] S NOT CHIROPRACTI ELSEWHERE C CENTER CLASSIFIED M5416 RADICULOPAT 08-19-2015 [facility] HY LUMBAR [facility] REGION C CENTER M546 PAIN IN 08-19-2015 [facility] THORACIC [facility] SPINE C CENTER J40 BRONCHITIS 01-13-2015 [facility] NOT PHYSICIANS SPECIFIED GROUP ACUTE OR CHRONIC R05 COUGH 01-02-2015 [facility] R0989 OTH SPEC SX 01-02-2015 [facility] & SIGNS MEDICAL INVLV THE IMAGING ASS CIRC & RESP SYS 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 6820 CELLULITIS 09-29-2014 [facility] AND ABSCESS PHYSICIANS OF FACE GROUP 7245 UNSPECIFIED 09-29-2014 [facility] BACKACHE PHYS[facility]ANS GROUP 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 7242 LUMBAGO 09-15-2014 [facility] 91248 SCOLIOSIS , 09-15-2014 [facility] IDIOPATHIC [facility] 92069 NAUSEA WITH 06-17-2014 [facility] VOMITING [facility] 00297 ABDOMINAL 06-17-2014 [place] PAIN, MEDICAL UNSPECIFIED IMAGING ASS SITE 61943 ABDOMINAL 06-17-2014 [place] [facility] RIGHT [facility] UPPER INC QUADRANT 5589 OTH&UNSPEC 06-16-2014 [facility] P GASTROENTER ITIS&COLITI S 90528 ABDOMINAL 06-16-2014 [place] OTHER MEDICAL SPECIFIED IMAGING ASS SITE 034.0 034.0 STREP 03-01-2013 [place] SORE [facility] THROAT [facility] 079.99 079.99 03-01-2013 [place] VIRAL [facility] INFECTION Hospital NOS 47947 UNSPECIFIED 03-01-2013 [facility] VIRAL [facility] INFECTION SERVICES IN CCE & UNS SITE 85065 FEVER 03-01-2013 [facility] UNSPECIFIED [facility]ERGENCY SERVICES 3671 MYOPIA 02-08-2013 [facility] ANG 7291 UNSPECIFIED 09-06-2012 [facility] MYOSITIS 8472 LUMBAR 09-06-2012 [facility] SPRAIN AND EMERGENCY STRAIN SERVICES 681.02 681.02 04-17-[address] [facility] 29156 ONYCHIA AND 04-16-2012 [facility] PARONYCHIA [facility] [place] [facility] 7282 MUSCULAR 04-12-2012 [place] WASTING AND [facility] DISUSE C CENTE ATROPHY NEC 8460 SPRAIN AND 04-12-2012 [place] STRAIN OF CHIROPRACTI LUMBOSACRAL C CENTE 08146 OTHER ACUTE 12-14-2011 [place] PAIN [facility]ITA 93743 OTHER 12-14-2011 [place] CHRONIC [facility] PAIN HOSPITA 7234 BRACHIAL 08-18-2011 [place] NEURITIS OR [facility]IROPRACTI C CENTER RADICULITIS NOS 01036 SPASM OF 08-18-2011 [facility] MUSCLE [facility] 8471 THORACIC 08-18-2011 [facility] SPRAIN AND CHIROPRACTI STRAIN [facility] 07170 ESOPHAGEAL 07-06-2011 HEALTH REFLUX PSC 7061 OTHER ACNE 07-06-2011 HEALTH PSC 18907 GENERALIZED 02-13-2011 [facility] ANXIETY MH MR BD DISORDER INC 82352 MIGRAINE 01-19-2011 THREE UNSP W/O [facility] MED INTRACT W/O CTR STATUS MIGRAINOSUS 7802 SYNCOPE AND 12-28-2010 [facility], COLLAPSE INC. 04893 OTHER 12-28-2010 [facility] CONVULSIONS 47221 OTHER 12-28-2010 [facility], DYSPNEA AND INC. RESPIRATORY ABNORMALITI ES 8470 NECK SPRAIN 10-31-2010 [facility] AND STRAIN NAL OPAL/THREE RIVE 52841 INJURY OF 10-31-2010 [facility] FACE AND INC NECK OTHER AND UNSPECIFIED 91150 OTHER 10-31-2010 [facility] INJURY OF INC OTHER SITES OF TRUNK V5869 LONG-TERM 09-06-2010 MALLORY SMILEY (CURRENT) USE OF CONSULTING OTHER SRV MEDICATIONS 21604 ACUTE 03-31-2010 A Kyree ALEXIS GASTRITIS [facility] WITHOUT MENTION OF HEMORRHAGE 71189 INSOMNIA 03-31-2010 A Kyree ALEXIS UNSPECIFIED [facility] 04961 ABDOMINAL 01-26-2010 [place] [facility], [facility] EPIGASTRIC FOUNDAT[facility] 03250 NAUSEA 12-16-2009 A Kyree RODRIGUEZ MD PSC 5641 IRRITABLE 11-11-2009 A Kyree ALEXIS BOWEL [facility] SYNDROME 55930 SHORTNESS 11-01-2009 [place] [place] OF BREATH [facility] 7821 RASH AND 05-11-2009 A Kyree ESPINOZA MD [facility] NONSPECIFIC SKIN ERUPTION 7862 COUGH 05-11-2009 A Kyree ALEXIS MD [facility] 4659 ACUTE URIS 04-26-2009 A Kyree ARMSTRONG [facility] UNSPECIFIED SITE V154 PERS HX 02-26-2009 [facility] FOR PSYCHOLOGIC PUBLIC HLTH AL TRAUMA PRS [facility] 65392 DYSHIDROSIS 11-17-2008 A Kyree ALEXIS MD [facility] 9895 TOXIC 09-24-2008 A Kyree MCKENZIE OF [facility] VENOM 01905 STIFFNESS 09-23-2008 [facility] OF JOINTS [facility]OP[facility] NEC C CENTER MULTIPLE SITES 7241 PAIN IN 09-23-2008 [facility] THORACIC [facility]I SPINE C CENTER 08462 CLOSED 06-04-2008 [facility] [place] FRACTURE MEDICAL METACARPAL IMAGING [facility]OC[facility] UNSPECIFIED 26613 CLOSED 05-05-2008 [place] FRACTURE MEDICAL UNSPEC IMAGING PHALANX/PHA ASSOCIATES AMANDA HAND 11485 PAIN IN 04-27-2008 [place] JOINT, [facility] 5201 SUPERNUMERA 03-30-2008 PLASENCIA&MOR RY TEETH ROW,[facility] 79981 LOSS OF 09-04-2007 [facility] 07427 FAILURE TO 09-04-2007 S [facility] 462 ACUTE 07-12-2007 A Kyree ALEXSI PHARYNGITIS [facility] 25778 ABDOMINAL 06-11-2007 [place] ALEXIS PAINMD PSC GENERALIZED [...] ti G ve Ca ps ul e MN 00 10 10 3 30 30 CV [...] E ZA 11 11 11 D JR MN 0 PH IN AR DA E MA [...] 0 30 30 WA 71 GH Ac MN 00 -1 -1 .0 L- 27 AN [...] 10 MG 05 91 TA BL ET MN 37 03 04 3 60 30 WA [...] PS # UL E 10 05 91 MN 37 03 03 3 60 30 WA [...] 10 MG 05 91 TA BL ET MN 37 12 02 2 30 30 WA [...] 10 MG 05 91 TA BL ET MN 37 12 01 2 30 30 WA [...] 10 MG 05 91 TA BL ET MN 37 12 12 2 30 30 WA [...] 04 04 0 30 30 WA 22 ND Ac VA 41 -0 -0 .0 L- [...] CA CY PS UL #5 E 91 ND 00 09 12 01 60 30 WA [...] CY CA #5 PS 91 UL E ND 00 09 10 00 60 30 WA [...] 01 30 30 WA 70 No Ac MN 00 -2 -0 .0 L- 17 t [...] 00 30 30 WA 70 No Ac MN 00 -2 -0 .0 L- 17 t [...] 00 60 30 CV 48 No Ac MN 00 -1 -2 .0 S 74 t [...] 017 K/mm3 ed monocyt 16:25 e count Riley % = 7.1 % 1.7-9.3 complet 017 [...] SQUARE METERS Comment: If this patient is -[place], then multiply the Comment: result by 1.210. [...] Procedure DOS Code Location Performer Comment RADEX 55552 JAZZ WHITTINGTON, HAND 2 9 MEDICAL MEKA VIEWS IMAGING ASSOCIATE S WRIST L3908 PALALVI PALLAVI HAND 9 AJ ROCHA MD ORTHOSIS PSC PSC EXT CONTROL COCK-UP PREFAB RADEX 73100 JAZZ JOSEPH, HAND 2 9 MEDICAL CHENCHO P VIEWS IMAGING ASSOCIATE S APPLICATI 95526 SHAWN ESCOBAR, ON CAST 9 PALLAVI PALLAVI ELBOW FINGER SHORT ARM RADEX 52963 JAZZ WHITTINGTON, HAND 9 MEDICAL MEKA MINIMUM 3 IMAGING VIEWS ASSOCIATE S Encounters Encounter Start End Date Code Location Performer Type Date [facility] JUAN C - 6 6 [facility] - [facility] 5 [facility] JOCELYNE Lamas MD (ER) 4 11:35 4 13:06 [facility] [place] [address] [address] [facility] JOCELYNE Rizvi (ER) 3 23:43 3 00:31 [facility] JUAN C - 3 3 [facility] [place] [address] [facility] [address] [facility] - [address] [facility] JUAN C - 9 9 [facility]AN [facility] - 9 9 [facility] OFF[facility] 19150 SHAWN ESCOBAR OUTPATIEN 9 9 PALLAVI PALLAVI T VISIT 15 MINUTES OFFICE 81964 SHAWN ESCOBAR OUTPATIEN 9 9 PALLAVI PALLAVI T VISIT 15 MINUTES HOSPITAL JUAN C - 9 9 [facility] OUTPATIEN INC T OFFICE 39771 SHAWN ESCOBAR OUTPATIEN 9 9 PALLAVI PALLAVI T NEW 60 MINUTES HOSPITAL JUAN C - 9 9 [facility] T EMERGENCY 90758 JUAN C 9 9 [facility] T VISIT LOW/MODER SEVERITY OFFICE 45516 JULIA BOYKIN 9 9 LYDIA RODRÍGUEZ T VISIT C 25 MINUTES OFFICE [address] [place] [facility] 9 9 VANESA Flynn VISIT PSC 15 MINUTES [facility] [place] [facility] 8 [facility]
[2017-02-02 13:48] LABS: AMPHETAMINES/METAMPHETAMINES NEGATIVE ng/mL (<1000)
--- NOTE | 2017-02-02 13:49 | Emergency Room Report ---
History of Present Illness Time Seen by MD Almaraz Presenting Problem in Triage Pt arrived:Walked Presenting Problem:PT STATES THAT 30 MINS AGO HE STARTED FEELING BAD AND SHAKING LASTED 10 MIN PT NEVER LOSS CONSCIOUSNESS. 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 N Clinical Suspician of Infection? N Mental Status: 1 - Regular (Normal Baseline) Sepsis Risk:Low Sepsis Risk Have you (or family members/close friends) recently traveled outside the [place]? N If Yes, where/when: Have you had exposure to infectious disease within the past month? N TB? Other? Specify: Patient had a brief episode of anxiety where he was stressed, started breathing quickly, had circumoral numbness and hand tingling, now resolved. States he is getting tomorrow. No chest pain. Not suicidal. No underlying problems. No complaints now. ALLERGIES Coded Allergies: No Known Allergies (01/19/17) History Medical History General CAD? No Angina: No [place]: No Hypertension? No Hyperlipidemia? No CHF? No DVT? No PE? No COPD? No Asthma? No Anemia? No GERD? No Gastric ulcers? No GI Bleed? No Hernia? No Thyroid Problems? No Hypothyroidism? No CVA? No Seizures? Yes Diabetes? No Renal Insuffiency? No End Stage Renal Disease? No UTI? No Stones? No BPH? No GB Disease: No Nephritic Syndrome? No Asplenia? No Hepatitis? No Sickle Cell Disease? No Arthritis? No Migraines? No Cataracts? No Glaucoma? No MRSA? No HIV? No TB? No Anxiety? Yes Depression? No Cancer? No More? Yes Additional hx: SCOLIOSIS Immunization Hx DT/Tetanus 5-10 YRS Surgical Hx Previous Surgery?Y ORAL SURGERY Social History Smoking Hx Smoker: Never Smoker Tobacco: No Packs/day N/A Alcohol Alcohol: No Review of Systems All Other Systems Reviewed and Negative Respiratory see HPI Psychiatric/Neurological see HPI, anxiety Physical Exam Vital Signs Vital Signs Date Time Temp Pulse Resp B/P Pulse O2 O2 Flow FiO2 Ox Delivery Rate 02/02 1310 98.4 104 18 140/86 99 General Appearance normal appearance, WD/WN, no apparent distress Eye Exam - bilateral eye normal exam, bilateral eye PERRL, bilateral eye EOMI Neck normal inspection, non-tender, supple, full range of motion Respiratory Status Yes: trachea midline, chest symmetrical, non tender chest. No: respiratory distress, tender on palpation, use of accessory muscles, pain on inspiration, pain on expiration, productive cough, non productive cough. Lung Sounds bilateral: normal breath sounds, lungs clear. Cardiovascular normal exam, regular rate/rhythm, no peripheral edema, no gallop, no JVD, no murmur, no rub, normal peripheral pulses Extremities normal range of motion, normal inspection Strength 5 Upper Ext (L), 5 Upper Ext (R), 5 Lower Ext (L), 5 Lower Ext (R) Neurologic alert, normal exam, no motor/sensory deficits, oriented x 3 Glascow Coma Scale Glascow Coma Scale Response Value EYE response: 4 Spontaneously 4 MOTOR response: 6 OBEYS 6 VERBAL response: 4 Disoriented & Converses 4 Total 14 Mental status normal mood/affect Skin intact, normal color, warm/dry Medical Decision Making LABS/Meds/Orders Pt receiving controlled substance in ED? No Results/Orders Laboratory Tests 02/02/17 1320: Opiates Screen Pending, Urine Methadone Screen Pending, Barbiturates Pending, Phencyclidine Screen Pending, Amphetamines Screen Pending, Benzodiazepines Screen Pending, Cocaine Screen Pending, Marijuana (THC) Screen Pending, Urine Color YELLOW, Urine Appearance CLEAR, Urine pH 6.0, Ur Specific [place] 1.010, Urine Protein NEGATIVE, Urine Ketones NEGATIVE, Urine Blood NEGATIVE, Urine Nitrate NEGATIVE, Urine Bilirubin NEGATIVE, Urine Urobilinogen 0.2, Ur Leukocyte Esterase NEGATIVE, Urine Glucose NEGATIVE Orders Procedure Date/time Status URINALYSIS/COMPLETE 02/02 1323 Complete DRUG ABUSE SCREEN (TRIAGE) 02/02 1322 Active Progress ED Progress Notes Date 02/02/17 Time 1346 Comment Patient getting tomorrow. He's very excited and looking forward to the wedding. He has a lot of family and friends coming in today. He will be able to spend some time with his fiancee today. He has no complaints now. We reviewed how to slow his breathing down by holding a brown paper bag to his mouth as well as talking to his fiancee about his anxiety. Medication not indicated at this time. ROS overall neg and exam normal; further testing not indicated at this time. Departure Departure Time of Disposition 1348 Disposition DC Home or Self Care(routine) Clinical Impression Primary Impression: Situational anxiety Condition STABLE Patient Instructions DI for Anxiety -- Adult Additional Instructions Congratulations on getting tomorrow! Try to get some rest and relax a little tonight before the big day. If your breathing gets fast again and you feel the tingling in your hands, hold a brown paper bag to your mouth and breathe slowly in and out until the tingling goes away. Discharge Counseling Counseled pt/family regarding diagnosis, home care, follow up needs ED Critical Care Critical Care No at 2288
--- OUTSIDE RECORDS SUMMARY | 2017-02-02 13:51 | External Medical Summary Rpt | CCD ---
Author Author , ASHUTOSH Organization ASHUTOSH Address Unknown Phone [email or web address] Care Team Providers Care Software Database Architect Name Role Phone A Kyree ALEXIS MD PSC, A Unavailable Unavailable Kyree ALEXIS MD [facility] PALLAVI ESCOBAR, Unavailable Unavailable PALLAVI ESCOBAR DOUGLAS, Unavailable Unavailable MEKA WHITTINGTON [facility] # [id number], Unavailable Unavailable [id number], Unavailable Unavailable [id number] [place] [facility] [facility], Unavailable Unavailable [facility] Un[facility] Unavailable [facility], [facility] Unavailable Unavailable [facility], [facility] Un[facility], [facility] Unavailable Unavailable [facility]OSPITAL P, [facility] [place], Unavailable Unavailable [place] [facility], Unavailable Unavailable [facility] LAKISHA PLASENCIA, Unavailable Unavailable [facility] Un[facility] Un[facility], [facility], [facility] ARAMIS CRI, ARAMIS CRI Unavailable Unavailable [facility] Unavailable Unavailable [facility] Unavailable Unavailable SERVICES, [facility] CHENCHO JOSEPH, Unavailable Unavailable [facility] Unavailable Unavailable [facility] Unavailable Unavailable INC, [facility] MALLORY SMILEY MD Unavailable Unavailable CONSULTING SRVMALLORY MD CONSULTING SRV ASHKAN FAITH, Unavailable [facility]available [facility], Unavailable Unavailable [facility] Unavailable Unavailable [id number] # [id number], [facility] 84[address] # 0098 [facility] Unavailable Unavailable [id number] # 0393, [facility] 64254 # 0393 PALLAVI ROCHA MD Unavailable Unavailable PSCPALLAVI MD [facility] SYLVAIN BONILLA Unavailable Unavailable SCIFRES ANG, SCIFRES Unavailable Unavailable [facility] Unavailable Unavailable [facility]IC[facility]ANS, [facility], Unavailable Unavailable [facility], Unavailable Unavailable [facility] Unavailable Unavailable #591, [facility] # Unavailable Unavailable [id number], [facility] # [id number] [facility] Unavailable Unavailable [facility], [facility] SHERIF STILES Unavailable Unavailable GO Jenkins DEBORAH J WRIGHT, A C, WRIGHT, Unavailable Unavailable [place] C Purpose Continuity of Care Document - 06-11-2007 through 2016 Problems Code Diagnosis DOS Provider Status J040 ACUTE 10-13-2015 ASHKAN LARYNGITIS PHYSICIANS, [facility] R0789 OTHER CHEST 10-13-2015 [facility] R079 CHEST PAIN 10-13-2015 [facility] R091 PLEURISY 10-13-2015 ASHKAN FAITH, [facility] G4700 INSOMNIA 09-13-2015 [facility]PECIFIED [facility] Z681 BODY MASS 09-13-2015 INDEX 19.9 [facility] OR LESS PHYSICIANS ADULT [id number] OTHER LONG 09-13-2015 TERM [facility] CURRENT PHYSICIANS DRUG THERAPY C70172 PAIN IN 08-19-2015 [facility] M419 SCOLIOSIS 08-19-2015 [facility] UNSPECIFIED [facility] M461 SACROILIITI 08-19-2015 [facility] S NOT CHIROP[facility]I ELSEWHERE C CENTER CLASSIFIED M5416 RADICULOPAT 08-19-2015 [facility] HY LUMBAR [facility]OP[facility]I REGION C CENTER M546 PAIN IN 08-19-2015 [facility] THORACIC [facility] SPINE C CENTER J40 BRONCHITIS 01-13-2015 [facility] NOT PHYSICIANS SPECIFIED GROUP ACUTE OR CHRONIC R05 COUGH 01-02-2015 [facility] R0989 OT SPEC SX 01-02-2015 [place] & SIGNS MEDICAL INVLV THE IMAGING ASS CIRC & RESP SYS 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 6820 CELLULITIS 09-29-2014 [facility] AND ABSCESS PHYSICIANS OF FACE GROUP 7245 UNSPECIFIED 09-29-2014 [facility] BACKACHE PHYSICIANS GROUP 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 7242 LUMBAGO 09-15-2014 [facility] 20986 SCOLIOSIS , 09-15-2014 [facility] IDI[facility]ATHIC [facility] 43720 NAUSEA WITH 06-17-2014 [facility] VOMITING [facility] 23722 ABDOMINAL 06-17-2014 [place] PAIN, MEDICAL UNSPECIFIED IMAGING ASS SITE 30037 ABDOMINAL 06-17-2014 [facility] PA[facility] UPPER INC QUADRANT 5589 OTH&UNSPEC 06-16-2014 [facility] ITIS&COLITI S 80327 ABDOMINAL 06-16-2014 [place] PA[facility] OTHER MEDICAL SPECIFIED IMAGING ASS SITE 36983 UNSPECIFIED 03-01-2013 [facility] VIRAL [facility] INFECTION SERVICES IN CCE & UNS SITE 12048 FEVER 03-01-2013 [facility] UNSPECIFIED [facility]ERGENCY SERVICES 3671 MYOPIA 02-08-2013 SCIFRES ANG 7291 UNSPECIFIED 09-06-2012 [facility] MYALGIA [facility] MYOSITIS 8472 LUMBAR 09-06-2012 [facility] SPRAIN AND EMERGENCY STRAIN SERVICES 52212 ONYCHIA AND 04-16-2012 [facility] PARONYCHIA EMERGENCY OF FINGER SERVICES 7282 MUSCULAR 04-12-2012 [place] WASTING AND CHIROPRACTI DISUSE C CENTE ATROPHY NEC 8460 SPRAIN AND 04-12-2012 [place] STRAIN OF CHIROPRACTI LUMBOSACRAL C CENTE 20431 OTHER ACUTE 12-14-2011 [place] PAIN [facility] 30769 OTHER 12-14-2011 [place] CHRONIC [facility] PAIN HOSPITA 7234 BRACHIAL 08-18-2011 [facility] NEURITIS OR [facility]OPRACTI C CENTER RADICULITIS NOS 73874 SPASM OF 08-18-2011 [facility] MUSCLE [facility] 8471 THORACIC 08-18-2011 [place] SPRAIN AND [facility]IROPRA[facility]I STRAIN C CENTER 20296 ESOPHAGEAL 07-06-2011 [facility] REFLUX [facility]SC 7061 OTHER ACNE 07-06-2011 [facility] 50588 GENERALIZED 02-13-2011 [facility] ANXIETY MH MR BD DISORDER INC 86464 MIGRAINE 01-19-2011 [facility] W/O [facility] MED INTRACT W/O CTR STATUS MIGRAINOSUS 7802 SYNCOPE AND 12-28-2010 [facility], COLLAPSE INC. 73663 OTHER 12-28-2010 SYLVAIN PIERRE CONVULSIONS 83753 OTHER 12-28-2010 [facility], DYSPNEA AND INC. RESPIRATORY ABNORMALITI ES 8470 NECK SPRAIN 10-31-2010 [facility] AND STRAIN NAL OPAL/THREE RIVE 06027 INJURY OF 10-31-2010 [facility] FACE AND INC NECK OTHER AND UNSPECIFIED 68993 OTHER 10-31-2010 [facility] INJURY OF INC OTHER SITES OF TRUNK V5869 LONG-TERM 09-06-2010 MALLORY SMILEY (CURRENT) USE OF CONSULTING OTHER SRV MEDICATIONS 81908 ACUTE 03-31-2010 A Kyree ALEXIS GASTRITIS [facility] WITHOUT MENTION OF HEMORRHAGE 09857 INSOMNIA 03-31-2010 A Kyree ALEXIS UNSPECIFIED [facility] 02985 ABDOMINAL 01-26-2010 [place] [facility]IC [facility] 83981 NAUSEA 12-16-2009 A Kyree RODRIGUEZ MD [facility] 5641 IRRITABLE 11-11-2009 A Kyree ALEXIS BOWEL [facility] SYNDROME 77622 SHORTNESS 11-01-2009 [facility] 7821 RASH AND 05-11-2009 A Kyree ESPINOZA MD [facility] NONSPECIFIC SKIN ERUPTION 7862 COUGH 05-11-2009 A Kyree ALEXIS MD [facility] 4659 ACUTE URIS 04-26-2009 A Kyree ARMSTRONG [facility] UNSPECIFIED SITE V154 PERS HX 02-26-2009 [facility]PT FOR PSYCHOLOGIC PUBLIC HLTH AL TRAUMA PRS [facility] 81933 DYSHIDROSIS 11-17-2008 A Kyree ALEXIS MD [facility] 9895 TOXIC 09-24-2008 A Kyree ALEXIS EFFECT OF [facility] VENOM 32109 STIFFNESS 09-23-2008 [place] OF [facility] NEC C CENTER MULTIPLE SITES 7241 PAIN IN 09-23-2008 [facility] THORACIC [facility]OP[facility] SPINE C CENTER 49167 CLOSED 06-04-2008 [place] FRACTURE [facility]ICAL METACARPAL IMAGING [facility]ONE S[facility] ASS[facility] UNSPECIFIED 70339 CLOSED 05-05-2008 [place] FRACTURE MEDICAL UNSPEC IMAGING PHALANX/PHA ASSOCI[facility] LANGES HAND 40332 PAIN IN 04-27-2008 [place] JOINT, [facility] 5201 SUPERNUMERA 03-30-2008 [facility] 86594 LOSS OF 09-04-2007 [facility] 85427 FAILURE TO 09-04-2007 [place] NURSE THRIVE [facility] 462 ACUTE 07-12-2007 A Kyree ALEXIS PHARYNGITIS [facility] 15859 ABDOMINAL 06-11-2007 A Kyree YEPEZ MD [facility] GENERALIZED Medications Na ND Rx Da Fi Fi Am Da Di Ph RX Ph St me C No te ll ll ou ys ag ar # ys at rm s nt no ma ic us Or Da si cy ia de te s n re d NV 00 10 10 3 30 30 CV [...] E ZA 11 11 11 D JR NV 0 PH IN AR DA E MA [...] 0 30 30 WA 71 GH Ac NV 00 -1 -1 .0 L- 27 AN [...] 10 MG 05 91 TA BL ET NV 37 03 04 3 60 30 WA [...] PS # UL E 10 05 91 NV 37 03 03 3 60 30 WA [...] 10 MG 05 91 TA BL ET NV 37 12 02 2 30 30 WA [...] CA CY PS # UL E 10 ZO 16 01 01 1 30 30 WA 44 RI Ac LP 71 -3 -3 .0 L- 91 SH ti ID 40 1- 1- 00 MA 40 ER ve EM 62 20 20 RT 2 20 11 11 RI TA 1 PH CH RT AR AR RA MA D TE CY # 10 10 MG 05 91 TA BL ET NV 37 12 01 2 30 30 WA [...] 10 MG 05 91 TA BL ET NV 37 12 12 2 30 30 WA [...] D CY # 10 05 91 54 05 05 0 30 30 WA [...] # MG 10 05 TA 91 B VY 59 04 05 0 30 30 [...] 04 04 0 30 30 WA 22 MN Ac VA 41 -0 -0 .0 L- [...] PS UL #5 E 91 VY 59 10 12 00 30 30 WA 22 No Ac VA 41 -1 -0 .0 L- 16 t ti NS 70 9- 3- 00 MA 88 Av ve E 10 20 20 RT 5 ai 70 71 09 09 la 0 PH bl MG AR e MA CA CY PS UL #5 E 91 MN 00 09 12 01 60 30 WA 70 RI Ac NO 59 -2 -0 .0 L- 37 SH ti CY 15 2- 3- 00 MA 90 ER ve CL 69 20 20 RT 1 IN 55 09 09 RI E 0 PH CH 10 AR AR 0 MA D MG CY CA #5 PS 91 UL E DI 00 11 12 00 60 30 WA 70 RI Ac CY 52 -1 -0 .0 L- 46 SH ti CL 70 7- 3- 00 MA 13 ER ve OM 58 20 20 RT 8 IN 60 09 09 RI E 1 PH CH 10 AR AR MA D MG CY CA #5 PS 91 UL E SE 31 10 12 01 15 30 WA 70 No Ac RT 72 -1 -0 .0 L- 42 t ti RA 20 9- 3- 00 MA 18 Av ve LI 21 20 20 RT 8 ai NE 43 09 09 la 0 PH bl HC AR e L MA 10 CY 0 MG #5 91 TA BL ET VY 59 10 11 00 30 30 [...] #5 91 TA BL ET DI 00 05 10 02 60 30 WA 70 RI Ac CY 52 -2 -0 .0 L- 21 SH ti CL 70 2- 8- 00 MA 64 ER ve OM 58 20 20 RT 6 IN 60 09 09 RI E 1 PH CH 10 AR AR MA D MG CY CA #5 PS 91 UL E 45 09 10 00 22 30 WA 70 RI Ac 80 -2 -0 7. L- 37 SH ti 20 2- 8- 00 MA 90 ER ve 91 20 20 0 RT 2 83 09 09 RI 4 PH CH AR AR MA D CY #5 91 MN 00 09 10 00 60 30 WA 70 RI Ac NO 59 -2 -0 .0 L- 37 SH ti CY 15 2- 8- 00 MA 90 ER ve CL 69 20 20 RT 1 IN 55 09 09 RI E 0 PH CH 10 AR AR 0 MA D MG CY CA #5 PS 91 UL E DE 51 09 10 00 30 7 WA 70 RI Ac SO 67 -2 -0 .0 L- 37 SH ti XI 21 2- 8- 00 MA 90 ER ve ME 27 20 20 RT 0 TA 10 09 09 RI SO 1 PH CH NE AR AR MA D 0. CY 05 % #5 CR 91 EA M VY 59 08 10 00 30 30 [...] D CY #5 91 VY 59 06 08 00 30 30 [...] 91 TA BL ET VY 59 06 07 00 30 30 [...] 01 30 30 WA 70 No Ac NV 00 -2 -0 .0 L- 17 t [...] 00 30 30 WA 70 No Ac NV 00 -2 -0 .0 L- 17 t ti EX 24 1- 7- 00 MA 38 Av ve A 11 20 20 RT 5 ai 5 53 09 09 la MG 0 PH bl AR e TA MA BL CY ET #5 91 VY 59 04 05 00 [...] MA D CY #5 91 ZY 00 03 03 00 60 30 CV 48 No Ac NV 00 -1 -2 .0 S 74 t ti EX 24 6- 6- 00 PH 80 Av ve A 11 20 20 AR ai 5 53 09 09 MA la MG 0 CY bl e TA #5 BL 43 ET 7 VY 59 03 03 00 30 30 CV 48 No Ac VA 41 -1 -2 .0 S 74 t ti NS 70 6- 6- 00 PH 81 Av ve E 10 20 20 AR ai 50 51 09 09 MA la 0 CY bl MG e #5 CA 43 PS 7 UL E 00 01 03 02 60 30 WA [...] PS UL #5 E 91 00 01 02 01 60 30 WA 70 RI Ac 14 -0 -2 .0 L- 03 SH ti 33 9- 6- 00 MA 31 ER ve 12 20 20 RT 1 60 09 09 RI 1 PH CH AR AR MA D CY #5 91 AB 59 01 02 00 30 [...] AR AR MA D CY #5 91 AB 59 11 12 00 30 30 WA 69 No Ac IL 14 -1 -1 .0 L- 98 t ti IF 80 7- 8- 00 MA 54 Av ve Y 00 20 20 RT 9 ai 5 71 08 08 la MG 3 PH bl AR e TA MA BL CY ET #5 91 VY 59 11 12 00 30 30 WA 22 No Ac VA 41 -1 -1 .0 L- 15 t ti NS 70 7- 8- 00 MA 31 Av ve E 10 20 20 RT 4 ai 30 31 08 08 la 0 PH bl MG AR e MA CA CY PS UL #5 E 91 AB 59 10 11 00 60 [...] MG 43 7 CA PS UL E VY 59 09 10 00 30 30 [...] TA #5 BL 43 ET 7 00 07 08 00 15 30 CV [...] CY CH AR #5 D 43 7 58 05 05 00 24 6 WA [...] bl AR e MA CY #5 91 AZ 00 05 05 00 6. 5 WA 69 No Ac IT 78 -1 -2 00 L- 72 t ti HR 11 6- 2- 0 MA 33 Av ve OM 49 20 20 RT 8 ai YC 66 08 08 la IN 8 PH bl AR e 25 MA 0 CY MG #5 TA 91 BL ET 58 03 04 00 60 10 WA 69 No Ac 17 -1 -1 .0 L- 63 t ti 70 0- 7- 00 MA 53 Av ve 27 20 20 RT 9 ai 40 08 08 la 4 PH bl AR e MA CY #5 91 Procedures Procedure DOS Code Location Performer Comment RADEX 72392 JAZZ SARMIENTOUTCHER, HAND 2 9 MEDICAL MEKA VIEWS IMAGING ASSOCIATE S WRIST L3908 PALLAVI PALLAVI HAND 9 AJ ROCHA MD ORTHOSIS PSC PSC EXT CONTROL COCK-UP PREFAB RADEX 12644 JAZZ JOSEPH, HAND 2 9 MEDICAL CHENCHO P VIEWS IMAGING ASSOCIATE S APPLICATI 17096 SHAWN ESCOBAR, ON CAST 9 PALLAVI PALLAVI ELBOW FINGER SHORT ARM RADEX 46592 JAZZ WHITTINGTON, HAND 9 MEDICAL MEKA MINIMUM 3 IMAGING VIEWS ASSOCIATE S Encounters Encounter Start End Date Code Location Performer Type Date [facility] JUAN C - 6 6 [facility] - 5 5 [facility] JUAN C - 5 5 [facility] - 3 3 [facility] JUAN C [facility] 3 3 [facility] - 2 [facility] THREE - 1 1 [facility] THREE - 1 1 [facility]UAN C - 9 9 [facility] 9 9 [facility] 61782 SHAWN ESCOBAR OUTPATIEN 9 9 PALLAVI PALLAVI T VISIT 15 MINUTES OFFICE 93849 SHAWN ESCOBAR OUTPATIEN 9 9 PALLAVI PALLAVI T VISIT 15 MINUTES HOSPITAL JUAN C - 9 9 [facility] 76647 SHAWN ESCOBAR OUTPATIEN 9 9 PALLAVI PALLAVI T NEW 60 MINUTES HOSPITAL JUAN C - 9 9 [facility] OUTPATIEN [facility] T EMERGENCY 15698 JUAN C 9 9 [facility] VISIT LOW/MODER SEVERITY OFFICE 80022 DAVID PL[facility]ENCIA[facility] 9 LYDIA RODRÍGUEZ T VISIT C 25 MINUTES OFFICE 11559 [place] [facility] 9 9 VANESA Flynn VISIT PSC 15 MINUTES HOSPITAL UNIVERSIT - 8 8 [facility] JUAN C - 8 8 [facility] OUTPATIEN INC T
--- OUTSIDE RECORDS SUMMARY | 2017-02-02 13:51 | External Medical Summary Rpt | CCD ---
Author Author , ASHUTOSH Organization ASHUTOSH Address Unknown Phone [email or web address] Care Team Providers Care Relay Assembler Name Role Phone A Kyree ALEXIS MD PSC, A Unavailable Unavailable Kyree ALEXIS MD [facility] PALLAVI ESCOBAR, Unavailable Unavailable PALLAVI ESCOBAR DOUGLAS, Unavailable Unavailable MEKA WHITTINGTON [facility] # [id number], Unavailable Unavailable [id number], Unavailable Unavailable [id number] [place] [facility] [place] [facility], Unavailable Unavailable [facility] Un[facility] Unavailable [facility], [facility] Unavailable [facility]available HOSPITA, [facility] Unavailable Unavailable INC, [facility] Unavailable Unavailable HOSPITAL P, [facility], Unavailable Unavailable [facility], Unavailable Unavailable [facility] LAKISHA PLASENCIA, Unavailable Unavailable [facility] Un[facility], [facility] Un[facility], [facility] ARAMIS CRI, ARAMIS CRI Unavailable Unavailable [facility], [facility] Unavailable Unavailable [facility] Unavailable Unavailable SERVICES, [facility] CHENCHO JOSEPH, Unavailable Unavailable CHENCHO JOSEPH [facility] Unavailable Unavailable CARE[facility] Unavailable Unavailable INC, [facility] MALLORY SMILEY MD Unavailable Unavailable CONSULTING SRVMALLORY MD CONSULTING SRV ASHKAN FAITH, Unavailable [facility]available [facility], Unavailable Unavailable [facility] Unavailable Unavailable [id number] # [id number], [facility] 02732 # 0098 [facility] Unavailable Unavailable [id number] # 0393, [facility] 12371 # 0393 PALLAVI ROCHA MD Unavailable Unavailable PSCPALLAVI MD [facility] SYLVAIN BONILLA Unavailable Unavailable SCIFRES ANG, SCIFRES Unavailable Unavailable [facility] Unavailable Unavailable PH[facility]ICIANS, [facility], [facility]available Unavailable [facility], [facility]available [facility]available [facility] Unavailable Unavailable #591, [facility] # Unavailable Unavailable [id number], [facility] # [id number] [facility] NAL Unavailable Unavailable [facility], [facility] SHERIF STILES Unavailable Unavailable GO Jenkins DEBORAH J WRIGHT, A C, WRIGHT, Unavailable Unavailable [place] C Purpose Continuity of Care Document - 06-11-2007 through 2016 Problems Code Diagnosis DOS Provider Status J040 ACUTE 10-13-2015 ASHKAN LARYNGITIS PHYSICIANS, [facility] R0789 OTHER CHEST 10-13-2015 [place] [facility] R079 CHEST PAIN 10-13-2015 [place] UNSPECIFIED [facility] R091 PLEURISY 10-13-2015 ASHKAN FAITH, [facility] G4700 INSOMNIA 09-13-2015 UNSPECIFIED [facility] Z681 BODY MASS 09-13-2015 INDEX 19.9 [facility] OR LESS PHYSICIANS ADULT [id number] OTHER LONG 09-13-2015 TERM [facility] CURRENT PHYSICIANS DRUG THERAPY [id number] PAIN IN 08-19-2015 [place] RIGHT [facility]IP [facility] M419 SCOLIOSIS 08-19-2015 [place] UNSPECIFIED [facility] M461 SACROILIITI 08-19-2015 [place] S NOT CHIROPRACTI ELSEWHERE C CENTER CLASSIFIED M5416 RADICULOPAT 08-19-2015 [place] HY LUMBAR [facility] REGION C CENTER M546 PAIN IN 08-19-2015 [place] THORACIC [facility] SPINE C CENTER J40 BRONCHITIS 01-13-2015 [facility] NOT PHYSICIANS SPECIFIED GROUP ACUTE OR CHRONIC R05 COUGH 01-02-2015 [facility] R0989 OT SPEC SX 01-02-2015 [place] & SIGNS MEDICAL INVLV THE IMAGING ASS CIRC & RESP SYS 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 6820 CELLULITIS 09-29-2014 [facility] AND ABSCESS PHYSICIANS OF FACE GROUP 7245 UNSPECIFIED 09-29-2014 [facility] BACKACHE PHYSICIANS GROUP 28013 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 [place] 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 7242 LUMBAGO 09-15-2014 [facility] 67243 SCOLIOSIS , 09-15-2014 [place] IDIOPATHIC [facility] 39534 NAUSEA WITH 06-17-2014 [place] VOMITING [facility] 44902 ABDOMINAL 06-17-2014 [place] PAIN, MEDICAL UNSPECIFIED IMAGING ASS SITE 95770 ABDOMINAL 06-17-2014 [facility] C PAIN RIGHT [facility] UPPER INC QUADRANT 5589 OTH&UNSPEC 06-16-2014 [facility] ITIS&COLITI S 57613 ABDOMINAL 06-16-2014 [place] [facility] OTHER MEDICAL SPECIFIED IMAGING ASS SITE 67699 UNSPECIFIED 03-01-2013 [facility] VIRAL [facility] INFECTION SERVICES IN CCE & UNS SITE 36392 FEVER 03-01-2013 [facility] UNSPECIFIED [facility]GENCY SERVICES 3671 MYOPIA 02-08-2013 SCIFRES ANG 7291 UNSPECIFIED 09-06-2012 [facility] MYALGIA [facility] AND SERVICES MYOSITIS 8472 LUMBAR 09-06-2012 [facility] SPRAIN AND EMERGENCY STRAIN SERVICES 45843 ONYCHIA AND 04-16-2012 [facility] PARONYCHIA EMERGENCY OF FINGER SERVICES 7282 MUSCULAR 04-12-2012 [place] WASTING AND CHIROPRACTI DISUSE C CENTE ATROPHY NEC 8460 SPRAIN AND 04-12-2012 [place] STRAIN OF CHIROPRACTI LUMBOSACRAL C CENTE 57750 OTHER ACUTE 12-14-2011 [place] PA[facility] 61723 OTHER 12-14-2011 [place] CHRONIC [facility] 7234 BRACHIAL 08-18-2011 [place] NEURITIS OR [facility]OPRACTI C CENTER RADICULITIS NOS 62165 SPASM OF 08-18-2011 [place] MUSCLE [facility] 8471 THORACIC 08-18-2011 [place] SPRAIN AND [facility]IROPRACTI STRAIN C CENTER 75400 ESOPHAGEAL 07-06-2011 [facility] REFLUX PSC 7061 OTHER ACNE 07-06-2011 [facility] 24939 GENERALIZED 02-13-2011 [facility] ANXIETY MH MR BD DISORDER INC 75221 MIGRAINE 01-19-2011 THREE UNSP W/O [facility] MED INTRACT W/O CTR STATUS MIGRAINOSUS 7802 SYNCOPE AND 12-28-2010 [facility], COLLAPSE INC. 82502 OTHER 12-28-2010 SYLVAIN PIERRE CONVULSIONS 26632 OTHER 12-28-2010 [facility], DYSPNEA AND INC. RESPIRATORY ABNORMALITI ES 8470 NECK SPRAIN 10-31-2010 [facility] AND STRAIN NAL OPAL/THREE RIVE 24401 INJURY OF 10-31-2010 [facility] FACE AND INC NECK OTHER AND UNSPECIFIED 12697 OTHER 10-31-2010 [facility] INJURY OF INC OTHER SITES OF TRUNK V5869 LONG-TERM 09-06-2010 MALLORY SMILEY (CURRENT) USE OF CONSULTING OTHER SRV MEDICATIONS 58076 ACUTE 03-31-2010 A Kyree ALEXIS GASTRITIS [facility] WITHOUT MENTION OF HEMORRHAGE 88611 INSOMNIA 03-31-2010 A Kyree ALEXIS UNSPECIFIED [facility] 60272 ABDOMINAL 01-26-2010 [place] [facility] EP[facility]ASTRIC F[facility] 71486 NAUSEA 12-16-2009 A Kyree RODRIGUEZ MD [facility] 5641 IRRITABLE 11-11-2009 A Kyree ALEXIS BOWEL [facility] SYNDROME 54335 SHORTNESS 11-01-2009 [facility] 7821 RASH AND 05-11-2009 A Kyree ESPINOZA MD [facility] NONSPECIFIC SKIN ERUPTION 7862 COUGH 05-11-2009 A Kyree ALEXIS MD [facility] 4659 ACUTE URIS 04-26-2009 A Kyree ARMSTRONG [facility] UNSPECIFIED SITE V154 PERS HX 02-26-2009 [facility]PT FOR PSYCHOLOGIC PUBLIC HLTH AL TRAUMA PRS [facility] 34641 DYSHIDROSIS 11-17-2008 A Kyree ALEXIS MD [facility] 9895 TOXIC 09-24-2008 A Kyree ALEXIS EFFECT OF [facility] VENOM 60347 STIFFNESS 09-23-2008 [place] OF JOINTS [facility]OP[facility]I NEC C CENTER MULTIPLE SITES 7241 PAIN IN 09-23-2008 [place] THORACIC [facility]I SPINE C CENTER 13269 CLOSED 06-04-2008 [place] FRACTURE MEDICAL METACARPAL IMAGING [facility]ONE S[facility] ASSOC[facility]ATES UNSPECIFIED 18522 CLOSED 05-05-2008 [place] FRACTURE MEDICAL UNSPEC IMAGING PHALANX/PHA ASSOCIATES LANGES HAND 35196 PAIN IN 04-27-2008 [place] JOINT, [facility] 5201 SUPERNUMERA 03-30-2008 PLASENCIA&MOR RY [facility] 21040 LOSS OF 09-04-2007 [facility] 77594 FAILURE TO 09-04-2007 [facility] 462 ACUTE 07-12-2007 A Kyree ALEXIS PHARYNGITIS [facility] 31957 ABDOMINAL 06-11-2007 A Kyree YEPEZ MD [facility] GENERALIZED Medications Na ND Rx Da Fi Fi Am Da Di Ph RX Ph St me C No te ll ll ou ys ag ar # ys at rm s nt no ma ic us Or Da si cy ia de te s n re d IA 00 10 10 3 30 30 CV [...] E ZA 11 11 11 D JR IA 0 PH IN AR DA E MA [...] 0 30 30 WA 71 GH Ac IA 00 -1 -1 .0 L- 27 AN [...] 10 MG 05 91 TA BL ET IA 37 03 04 3 60 30 WA [...] PS # UL E 10 05 91 IA 37 03 03 3 60 30 WA [...] 10 MG 05 91 TA BL ET IA 37 12 02 2 30 30 WA [...] 10 MG 05 91 TA BL ET IA 37 12 01 2 30 30 WA [...] 10 MG 05 91 TA BL ET IA 37 12 12 2 30 30 WA [...] 04 04 0 30 30 WA 22 TX Ac VA 41 -0 -0 .0 L- [...] CA CY PS UL #5 E 91 TX 00 09 12 01 60 30 WA [...] AR AR MA D CY #5 91 TX 00 09 10 00 60 30 WA [...] 01 30 30 WA 70 No Ac IA 00 -2 -0 .0 L- 17 t [...] 00 30 30 WA 70 No Ac IA 00 -2 -0 .0 L- 17 t [...] 00 60 30 CV 48 No Ac IA 00 -1 -2 .0 S 74 t [...] Procedure DOS Code Location Performer Comment RADEX 16858 JAZZ SARMIENTOUTCHER, HAND 2 9 MEDICAL MEKA VIEWS IMAGING ASSOCIATE S WRIST L3908 PALLAVI PALLAVI HAND 9 AJ ROCHA MD ORTHOSIS PSC PSC EXT CONTROL COCK-UP PREFAB RADEX 22777 JAZZ JOSEPH, HAND 2 9 MEDICAL CHENCHO P VIEWS IMAGING ASSOCIATE S APPLICATI 75645 SHAWN ESCOBAR, ON CAST 9 PALLAVI PALLAVI ELBOW FINGER SHORT ARM RADEX 72279 JAZZ WHITT[place], HAND 9 MEDICAL MEKA MINIMUM 3 IMAGING VIEWS ASSOCIATE S Encounters Encounter Start End Date Code Location Performer Type Date [facility] JUAN C - 6 6 [facility] 5 5 [facility] JUAN C - 5 5 [facility] - 3 3 N [facility] JUAN C [facility] 3 3 [facility] - 2 N [facility] THREE - 1 1 [facility] THREE - 1 1 [facility] JUAN C - 9 9 [facility] 9 9 [facility] OFF[facility] 95650 SHAWN ESCOBAR OUTPATIEN 9 9 PALLAVI PALLAVI T VISIT 15 MINUTES OFFICE 52733 [facility] ESCOBAR OUTPATIEN 9 9 PALLAVI PALLAVI T VISIT 15 MINUTES HOSPITAL JUAN C - 9 9 [facility] 59055 SH[facility]N ESCOBAR OUTPATIEN 9 9 PALLAVI PALLAVI T NEW 60 MINUTES HOSPITAL JUAN C - 9 9 [facility] OUTPATIEN [facility] T EMERGENCY 06487 JUAN C 9 9 [facility] VISIT LOW/MODER SEVERITY OFFICE 95247 DAVID PLASENCIA, [facility] 9 9 LYDIA RODRÍGUEZ T VISIT C 25 MINUTES OFFICE [address]405 [place] [facility] 9 9 VANESA Flynn VISIT PSC 15 MINUTES HOSPITAL UNIVERSIT - 8 8 Y [facility] JUAN C - 8 8 [facility] OUTPATIEN INC T
--- OUTSIDE RECORDS SUMMARY | 2017-02-02 13:52 | External Medical Summary Rpt | CCD ---
Author Author , ASHUTOSH Organization AHSUTOSH Address Unknown Phone [email or web address] Immunization Name Date Rout CVX Reac Dose [...]
--- OUTSIDE RECORDS SUMMARY | 2017-02-02 13:52 | External Medical Summary Rpt | CCD ---
Author Author , ASHUTOSH Organization ASHUTOSH Address Unknown Phone [email or web address] Immunization Name Date Rout CVX Reac Dose [...]
[2017-02-02 14:01] LABS: URINE SQUAMOUS CELLS OCC #/hpf (OCC)
[2017-02-02 14:03] VITALS: BP 140/86
[2017-02-20] MEDS ORDERED: IBUPROFEN800 MG PO (15:01)
== END 2017-02-02 14:04 | disposition home or self-care (01) ==
LOC: ER 13:05
PROVIDERS: Emergency Medicine
DX: F43.22 Adjustment disorder with anxiety (principal); M41.9 Scoliosis, unspecified